=== PATIENT | female | born 1960 | race African-American/Black ===

== ENCOUNTER 2017-04-19 12:42 | Inpatient (IN) | payer SELFPAY ==
[~2017-04-19] VITALS: Ht 160 cm; Wt 77.1 kg
[~2017-04-19 12:42] MED LIST: AMLO2.5T45 PO; AZIT250T; B50; EPIN0.3P3; FAMO10TA13; RANI300T7 PO; TRIA454O
[2017-04-19] MEDS ORDERED: METHYLPREDNISOLONE SOD SUCC 125 MG/2 ML VIAL IV STA (14:21)
[2017-04-19] MEDS ORDERED: IPRATROPIUM BROMIDE (0.02%) 0.5MG/2.5ML NEB HHN STA (14:21)
[2017-04-19] MEDS ORDERED: MAGNESIUM 2 G PREMIX 50 ML IV STA (14:21)
[2017-04-19] MEDS ORDERED: ALBUTEROL (0.083%) 2.5MG/3ML NEB HHN STA (14:21)
[2017-04-19] MEDS ORDERED: ALBUTEROL (0.083%) 2.5MG/3ML NEB ONE (14:46)
[2017-04-19] MEDS ORDERED: IPRATROPIUM BROMIDE (0.02%) 0.5MG/2.5ML NEB ONE (14:46)
[2017-04-19] MEDS ORDERED: ALBUTEROL (0.5%) 2.5MG/0.5ML NEB HHN ONE (14:47)
[2017-04-19 15:04] LABS: BASOPHILS % 0.6 % (0.0-2.0); HEMATOCRIT. 43.7 % (36.0-48.0); HEMOGLOBIN. 14.9 g/dL (12.0-16.0); LYMPHOCYTES % 30.7 % (20.0-50.0); MEAN CORPUSCULAR HEMOGLOBIN 30.2 pg (28.0-32.0); MEAN CORPUSCULAR VOLUME 88.4 fL (81.0-99.0); MEAN PLATELET VOLUME 8.4 fl (7.4-10.4); MONOCYTES % 5.9 % (2.0-8.0); NEUTROPHILS % 59.8 % (40.0-76.0); PLATELET 158 x1000/uL (130-400); RED BLOOD CELL COUNT 4.95 mill/uL (4.2-5.4); RED CELL DISTRIBUTION WIDTH 13.3 % (11.6-14.6)
[2017-04-19 15:13] LABS: CARBON DIOXIDE 23 mEq/L (21-32); CHLORIDE 109 mEq/L (98-107)
[2017-04-19 15:19] LABS: TROPONIN I < 0.02 ng/mL (0.00-0.04)
[2017-04-19 15:25] LABS: PROTHROMBIN TIME 10.7 sec (9.4-11.6)
[2017-04-19] MEDS ORDERED: NITROGLYCERIN OINT 1GM/INCH UDPKT TD ONE (18:15)
[2017-04-19] MEDS ORDERED: ASPIRIN 325MG TABLET PO ONE (18:15)
[2017-04-19 21:56] VITALS: BP 120/71
[2017-04-19] MEDS: METHYLPREDNISOLONE SOD SUCC 40 MG/ML VIAL IV SCH (22:48)
[2017-04-19] MEDS: HYDROCODONE/ACETAMINOPHEN 5/325MG TABLET PO PRN (22:55)
[2017-04-20 00:22] VITALS: BP 113/65
[2017-04-20] MEDS: IPRATROPIUM/ALBUTEROL 0.5-3(2.5)MG/3ML NEB HHN SCH ×4 (01:16→21:17)
[2017-04-20] MEDS: LEVOFLOXACIN 500MG PREMIX 100 ML IV SCH ×2 (01:35→21:18)
[2017-04-20 04:40] VITALS: BP 113/75
[2017-04-20] MEDS: METHYLPREDNISOLONE SOD SUCC 40 MG/ML VIAL IV SCH ×3 (05:52→21:18)
[2017-04-20 06:37] LABS: BASOPHILS % 0.1 % (0.0-2.0); HEMATOCRIT. 40.9 % (36.0-48.0); HEMOGLOBIN. 13.9 g/dL (12.0-16.0); LYMPHOCYTES % 13.9 % (20.0-50.0); MEAN CORPUSCULAR HEMOGLOBIN 29.8 pg (28.0-32.0); MEAN CORPUSCULAR VOLUME 87.7 fL (81.0-99.0); MONOCYTES % 1.6 % (2.0-8.0); NEUTROPHILS % 84.4 % (40.0-76.0); PLATELET 181 x1000/uL (130-400); RED BLOOD CELL COUNT 4.66 mill/uL (4.2-5.4); RED CELL DISTRIBUTION WIDTH 13.4 % (11.6-14.6)
[2017-04-20 07:56] LABS: CARBON DIOXIDE 23 mEq/L (21-32); CHLORIDE 107 mEq/L (98-107); TROPONIN I < 0.02 ng/mL (0.00-0.04)
[2017-04-20 08:25] VITALS: BP 129/35
[2017-04-20] MEDS: HYDROCODONE/ACETAMINOPHEN 5/325MG TABLET PO PRN ×2 (14:40→21:17)
[2017-04-20] MEDS ORDERED: IPRATROPIUM/ALBUTEROL 0.5-3(2.5)MG/3ML NEB HHN PRN (15:00)
[2017-04-20 16:18] VITALS: BP 144/75
[2017-04-20] MEDS: DIPHENHYDRAMINE 50MG CAPSULE PO PRN (17:19)
[2017-04-20 20:10] VITALS: BP 134/81
[2017-04-20] MEDS: GUAIFENESIN 600MG ER TABLET PO SCH (21:17)
[2017-04-20] MEDS: BUDESONIDE 0.5MG/2ML NEB HHN SCH (21:18)
[2017-04-21 00:15] VITALS: BP 114/69
[2017-04-21] MEDS: IPRATROPIUM/ALBUTEROL 0.5-3(2.5)MG/3ML NEB HHN SCH ×4 (02:32→21:37)
[2017-04-21 04:44] VITALS: BP 132/78
[2017-04-21] MEDS: METHYLPREDNISOLONE SOD SUCC 40 MG/ML VIAL IV SCH ×2 (05:45→14:59)
[2017-04-21] MEDS: HYDROCODONE/ACETAMINOPHEN 5/325MG TABLET PO PRN ×2 (05:55→15:10)
[2017-04-21 08:10] VITALS: BP 108/60
[2017-04-21] MEDS: BUDESONIDE 0.5MG/2ML NEB HHN SCH ×2 (08:10→21:39)
[2017-04-21] MEDS: GUAIFENESIN 600MG ER TABLET PO SCH ×2 (08:24→21:47)
[2017-04-21 16:30] VITALS: BP 128/82
[2017-04-21] MEDS: LEVOFLOXACIN 500MG TABLET PO SCH (17:46)
[2017-04-21] MEDS: DIPHENHYDRAMINE 50MG CAPSULE PO PRN (17:50)
[2017-04-21 20:00] VITALS: BP 133/73
[2017-04-21] MEDS ORDERED: DOCUSATE SODIUM 100MG CAPSULE PO PRN (21:15)
[2017-04-21] MEDS ORDERED: GUAIFENESIN 200MG/10ML SUGAR FREE UDC PO PRN (21:15)
[2017-04-21] MEDS ORDERED: LACTULOSE 20G/30ML UDC PO NR (21:15)
[2017-04-21] MEDS ORDERED: CLONIDINE 0.1MG TABLET PO PRN (21:15)
[2017-04-21] MEDS ORDERED: ACETAMINOPHEN 650MG SUPP PR PRN (21:15)
[2017-04-21] MEDS ORDERED: NA PHOS,M-B/NA PHOS,DI-BA ENEMA 118ML PR PRN (21:15)
[2017-04-21] MEDS ORDERED: ONDANSETRON HCL 4MG/2ML VIAL IV PRN (21:15)
[2017-04-21] MEDS ORDERED: ENOXAPARIN 40MG/0.4ML SYR SUBCUT SCH (21:15)
[2017-04-21] MEDS ORDERED: BISACODYL 5MG TABLET PO NR (21:15)
[2017-04-21] MEDS ORDERED: ACETAMINOPHEN 650MG/20.3ML UDC GT PRN (21:15)
[2017-04-21] MEDS ORDERED: MAGNESIUM/ALUMINUM HYDROXIDE/SIMETHICONE 30ML UDC PO PRN (21:15)
[2017-04-21] MEDS ORDERED: ACETAMINOPHEN 325MG TABLET PO PRN (21:15)
[2017-04-21] MEDS ORDERED: PROMETHAZINE HCL 25MG TABLET PO PRN (21:15)
[2017-04-21] MEDS ORDERED: MAGNESIUM HYDROXIDE 400MG/5ML 30ML UDC PO PRN (21:15)
[2017-04-21] MEDS: MORPHINE SULFATE 2 MG/ML CPJ (NOT FOR IM USE) IV PRN (21:48)
[2017-04-21] MEDS: SODIUM CHLORIDE 0.9% INJ 3ML FLUSH IVF SCH (21:49)
[2017-04-22] VITALS: BP 113/75
[2017-04-22] MEDS: DIPHENHYDRAMINE 50MG CAPSULE PO PRN ×4 (00:08→20:33)
[2017-04-22 00:32] LABS: BG BASE EXCESS 2.7 mmol/L (-2.0-2.0); BG CARBOXYHEMOGLOBIN 0.2 % (0.5-1.5); BG DEOXYHEMOGLOBIN 10.6 % (0.0-5.0); BG FRACTION INSPIRED OXYGEN 21; BG HCO3 ACT 26.1 mmol/L (22.0-26.0); BG METHEMOGLOBIN 0.3 % (0.0-1.5); BG OXYGEN SATURATION 89.3 % (92.0-98.5); BG OXYHEMOGLOBIN 88.9 % (94.0-97.0); BG PCO2 36.6 mmHg (35.0-45.0); BG PH 7.471 (7.350-7.450); BG PO2 53.5 mmHg (75.0-100.0); BG SAMPLE SITE LEFT RADIAL; BG TOTAL HEMOGLOBIN 15.2 g/dL (12.0-18.0); BG VENT MODE ROOM AIR
[2017-04-22] MEDS: IPRATROPIUM/ALBUTEROL 0.5-3(2.5)MG/3ML NEB HHN SCH ×4 (02:12→20:14)
[2017-04-22] MEDS: ACETYLCYSTEINE 200MG/ML 20% VIAL 4ML INH SCH ×2 (02:12→07:36)
[2017-04-22 02:14] LABS: *AMPHETAMINES SCREEN URINE NEGATIVE (NEGATIVE); *BARBITURATES SCREEN URINE NEGATIVE (NEGATIVE); *BENZODIAZEPINES SCREEN URINE NEGATIVE (NEGATIVE); *COCAINE SCREEN URINE PRESUMTIVE POSITIVE (NEGATIVE); CANNABINOID URINE SCREEN NEGATIVE (NEGATIVE); METHADONE URINE SCREEN NEGATIVE (NEGATIVE); OPIATES URINE SCREEN PRESUMTIVE POSITIVE (NEGATIVE); PHENCYCLIDINE URINE SCREEN NEGATIVE (NEGATIVE)
[2017-04-22 04:00] VITALS: BP 113/69
[2017-04-22] MEDS: MORPHINE SULFATE 2 MG/ML CPJ (NOT FOR IM USE) IV PRN ×3 (05:49→20:35)
[2017-04-22 06:28] LABS: HEMATOCRIT. 41.2 % (36.0-48.0); MEAN CORPUSCULAR HEMOGLOBIN 30.1 pg (28.0-32.0); MEAN CORPUSCULAR VOLUME 88.7 fL (81.0-99.0); MEAN PLATELET VOLUME 9.1 fl (7.4-10.4); PLATELET 203 x1000/uL (130-400); RED BLOOD CELL COUNT 4.64 mill/uL (4.2-5.4); RED CELL DISTRIBUTION WIDTH 14.1 % (11.6-14.6)
[2017-04-22] MEDS: SODIUM CHLORIDE 0.9% INJ 3ML FLUSH IVF SCH ×3 (06:48→20:36)
[2017-04-22 07:32] LABS: CHLORIDE 106 mEq/L (98-107)
[2017-04-22] MEDS: BUDESONIDE 0.5MG/2ML NEB HHN SCH ×2 (07:36→20:14)
[2017-04-22 07:37] LABS: CARBON DIOXIDE 27 mEq/L (21-32); HDL CHOLESTEROL 80 mg/dL (40-59); LDL CHOLESTEROL 93 mg/dL (5-100)
[2017-04-22 08:16] VITALS: BP 137/80
[2017-04-22] MEDS: GUAIFENESIN 600MG ER TABLET PO SCH (09:01)
[2017-04-22] MEDS: METHYLPREDNISOLONE SOD SUCC 40 MG/ML VIAL IV SCH (09:01)
[2017-04-22] MEDS: ENOXAPARIN 30MG/0.3ML SYR SUBCUT SCH ×2 (09:02→20:34)
[2017-04-22 12:00] VITALS: BP 110/64
[2017-04-22] MEDS ORDERED: GUAIFENESIN/CODEINE 100-10MG/5ML UDC PO PRN (12:30)
[2017-04-22] MEDS ORDERED: MAGNESIUM CITRATE 300ML SOLUTION PO NR (12:45)
[2017-04-22] MEDS: LEVOFLOXACIN 500MG TABLET PO SCH (12:45)
[2017-04-22] MEDS ORDERED: ALBU18HF2 IH (14:53)
[2017-04-22] MEDS ORDERED: P50 PO (14:53)
[2017-04-22] MEDS ORDERED: FLUT1DIS3 IH (14:53)
[2017-04-22 16:00] VITALS: BP 117/77
[2017-04-22 20:00] VITALS: BP 115/81
[2017-04-22 21:04] LABS: PLATELET ESTIMATE NORMAL
[2017-04-23 00:20] VITALS: BP 126/83
[2017-04-23 04:00] VITALS: BP 117/77
[2017-04-23] MEDS: SODIUM CHLORIDE 0.9% INJ 3ML FLUSH IVF SCH ×2 (05:06→14:27)
[2017-04-23] MEDS: BUDESONIDE 0.5MG/2ML NEB HHN SCH ×2 (07:56→20:24)
[2017-04-23] MEDS: IPRATROPIUM/ALBUTEROL 0.5-3(2.5)MG/3ML NEB HHN SCH ×3 (07:57→20:24)
[2017-04-23 08:00] VITALS: BP 120/77
[2017-04-23] MEDS: DIPHENHYDRAMINE 50MG CAPSULE PO PRN (08:36)
[2017-04-23] MEDS: ENOXAPARIN 30MG/0.3ML SYR SUBCUT SCH ×2 (08:36→21:05)
[2017-04-23] MEDS: METHYLPREDNISOLONE SOD SUCC 40 MG/ML VIAL IV SCH (08:36)
[2017-04-23 09:26] LABS: BG BASE EXCESS 3.3 mmol/L (-2.0-2.0); BG DEOXYHEMOGLOBIN 11.8 % (0.0-5.0); BG FRACTION INSPIRED OXYGEN 21; BG HCO3 ACT 27.1 mmol/L (22.0-26.0); BG METHEMOGLOBIN 0.4 % (0.0-1.5); BG OXYHEMOGLOBIN 86.8 % (94.0-97.0); BG PCO2 38.3 mmHg (35.0-45.0); BG PH 7.467 (7.350-7.450); BG PO2 52.2 mmHg (75.0-100.0); BG SAMPLE SITE LEFT BRACHIAL; BG TOTAL HEMOGLOBIN 15.6 g/dL (12.0-18.0); BG VENT MODE ROOM AIR
[2017-04-23] MEDS: LEVOFLOXACIN 500MG TABLET PO SCH (11:30)
[2017-04-23 12:00] VITALS: BP 122/75
[2017-04-23 16:15] VITALS: BP 117/75
[2017-04-23] MEDS: MORPHINE SULFATE 2 MG/ML CPJ (NOT FOR IM USE) IV PRN (17:13)
[2017-04-23 20:40] VITALS: BP 127/72
[2017-04-24 00:39] VITALS: BP 139/81
[2017-04-24] MEDS: IPRATROPIUM/ALBUTEROL 0.5-3(2.5)MG/3ML NEB HHN SCH ×4 (01:47→19:42)
[2017-04-24] MEDS: DIPHENHYDRAMINE 50MG CAPSULE PO PRN ×2 (02:02→20:41)
[2017-04-24 04:00] VITALS: BP 123/77
[2017-04-24] MEDS: MORPHINE SULFATE 2 MG/ML CPJ (NOT FOR IM USE) IV PRN ×3 (06:55→22:58)
[2017-04-24 07:21] VITALS: BP 121/76
[2017-04-24] MEDS: BUDESONIDE 0.5MG/2ML NEB HHN SCH (08:46)
[2017-04-24] MEDS: ENOXAPARIN 30MG/0.3ML SYR SUBCUT SCH ×2 (08:56→20:42)
[2017-04-24] MEDS: PREDNISONE 20MG TABLET PO SCH (08:56)
[2017-04-24 09:20] LABS: BG BASE EXCESS 0.4 mmol/L (-2.0-2.0); BG CARBOXYHEMOGLOBIN 0.6 % (0.5-1.5); BG FRACTION INSPIRED OXYGEN 21; BG HCO3 ACT 23.6 mmol/L (22.0-26.0); BG METHEMOGLOBIN 0.3 % (0.0-1.5); BG OXYGEN SATURATION 91.9 % (92.0-98.5); BG OXYHEMOGLOBIN 91.1 % (94.0-97.0); BG PCO2 34.3 mmHg (35.0-45.0); BG PH 7.456 (7.350-7.450); BG PO2 60.1 mmHg (75.0-100.0); BG SAMPLE SITE LEFT RADIAL; BG TOTAL HEMOGLOBIN 15.8 g/dL (12.0-18.0); BG VENT MODE ROOM AIR
[2017-04-24] MEDS: LEVOFLOXACIN 500MG TABLET PO SCH (11:03)
[2017-04-24 12:00] VITALS: BP 120/84
[2017-04-24 16:00] VITALS: BP 119/82
[2017-04-24 20:49] VITALS: BP 103/66
[2017-04-24] MEDS: SODIUM CHLORIDE 0.9% INJ 3ML FLUSH IVF SCH ×2 (22:00→22:58)
[2017-04-25 00:27] VITALS: BP 122/59
[2017-04-25] MEDS: IPRATROPIUM/ALBUTEROL 0.5-3(2.5)MG/3ML NEB HHN SCH ×3 (02:00→13:12)
[2017-04-25 04:00] VITALS: BP 120/80
[2017-04-25] MEDS: PREDNISONE 20MG TABLET PO SCH (08:47)
[2017-04-25] MEDS: MORPHINE SULFATE 2 MG/ML CPJ (NOT FOR IM USE) IV PRN (08:48)
[2017-04-25] MEDS: ENOXAPARIN 30MG/0.3ML SYR SUBCUT SCH (09:28)
[2017-04-25 09:32] LABS: BG BASE EXCESS 1.6 mmol/L (-2.0-2.0); BG CARBOXYHEMOGLOBIN 0.1 % (0.5-1.5); BG DEOXYHEMOGLOBIN 7.5 % (0.0-5.0); BG FRACTION INSPIRED OXYGEN 21; BG HCO3 ACT 25.6 mmol/L (22.0-26.0); BG METHEMOGLOBIN 0.4 % (0.0-1.5); BG OXYGEN SATURATION 92.5 % (92.0-98.5); BG PCO2 38.3 mmHg (35.0-45.0); BG PH 7.443 (7.350-7.450); BG PO2 64.8 mmHg (75.0-100.0); BG SAMPLE SITE LEFT BRACHIAL; BG TOTAL HEMOGLOBIN 15.4 g/dL (12.0-18.0); BG VENT MODE ROOM AIR
[2017-04-25] MEDS: BUDESONIDE 0.5MG/2ML NEB HHN SCH (09:59)
[2017-04-25] MEDS: LEVOFLOXACIN 500MG TABLET PO SCH (11:39)
[2017-04-25 13:05] VITALS: BP 131/90
== END 2017-04-25 14:00 | disposition home or self-care (01) | DRG 140 ==
LOC: ER 12:50 → 6WST 16:24 → EDBEDREQ 16:26 → EDBEDREQTM 16:26 → ENRESERV 19:39 → 6WST 04-22 00:10
PROVIDERS: ADMIT Family Medicine; ATTEND Family Medicine
DX: J44.0 Chronic obstructive pulmonary disease with (acute) lower respiratory infection (principal); J96.00 Acute respiratory failure, unspecified whether with hypoxia or hypercapnia; I11.0 Hypertensive heart disease with heart failure; I50.9 Heart failure, unspecified; F14.90 Cocaine use, unspecified, uncomplicated; F17.210 Nicotine dependence, cigarettes, uncomplicated; J20.9 Acute bronchitis, unspecified; J44.1 Chronic obstructive pulmonary disease with (acute) exacerbation; J98.11 Atelectasis; L40.9 Psoriasis, unspecified; Z88.0 Allergy status to penicillin; Z71.6 Tobacco abuse counseling; Z88.8 Allergy status to other drugs, medicaments and biological substances; Z82.49 Family history of ischemic heart disease and other diseases of the circulatory system
CPT/HCPCS: 36415; 36600; 71010; 80048; 80053; 80061; 80305; 82375; 82805; 83605; 83690; 83880; 84484; 85025; 85379; 85610; 87040; 87804; 93005; 93970; 94640; 94664; 96365; 96366; 96375; 97116; 97162; 99285; C1893; J1650; J1956; J2270; J2920; J2930; J3475; J7050; J7512; J7608; J7611; J7620; J7626; Q0163; Q0169

== ENCOUNTER 2018-10-13 12:27 | Emergency (ER) | payer MEDICAID ==
[~2018-10-13] VITALS: Ht 160 cm; Wt 81.0 kg
[~2018-10-13 12:27] MED LIST changes: +ALBU18HF2 IH; -AMLO2.5T45 PO; -AZIT250T; -B50; -EPIN0.3P3; -FAMO10TA13; +FLUT1DIS3 IH; +P50 PO; -RANI300T7 PO; -TRIA454O
[2018-10-13 15:00] VITALS: BP 129/87
== END 2018-10-13 15:28 | disposition home or self-care (01) ==
LOC: ER 12:27
DX: H61.22 Impacted cerumen, left ear (principal); H60.92 Unspecified otitis externa, left ear; J44.9 Chronic obstructive pulmonary disease, unspecified; I11.0 Hypertensive heart disease with heart failure; I50.9 Heart failure, unspecified; F17.200 Nicotine dependence, unspecified, uncomplicated; M32.9 Systemic lupus erythematosus, unspecified; Z98.890 Other specified postprocedural states; Z88.0 Allergy status to penicillin; Z88.1 Allergy status to other antibiotic agents; Z79.899 Other long term (current) drug therapy
CPT/HCPCS: 69209; 70486; 99284

== ENCOUNTER 2018-12-13 15:56 | Inpatient (IN) | payer MEDICAID ==
[~2018-12-13] VITALS: Ht 160 cm; Wt 79.8 kg
[2018-12-13 10:00] VITALS: BP 103/68
[2018-12-13] MEDS ORDERED: LEVOFLOXACIN 750MG PREMIX 150 ML IV ONE (16:45)
[2018-12-13] MEDS ORDERED: METHYLPREDNISOLONE SOD SUCC 125 MG/2 ML VIAL IV STA (16:45)
[2018-12-13] MEDS ORDERED: ONDANSETRON HCL 4MG/2ML INJ IV STA (16:45)
[2018-12-13] MEDS ORDERED: MORPHINE SULFATE 4 MG/ML CPJ (NOT FOR IM USE) IV STA (16:45)
[2018-12-13] MEDS ORDERED: SODIUM CHLORIDE 0.9% 1,000 ML IV ONE (16:45)
[2018-12-13] MEDS ORDERED: DIPHENHYDRAMINE 50MG/ML VIAL IV ONE ×2 (16:45→19:45)
[2018-12-13] MEDS ORDERED: IPRATROPIUM/ALBUTEROL 0.5-3(2.5)MG/3ML NEB HHN ONE (16:45)
[2018-12-13 17:20] LABS: EOSINOPHILS % 5.7 % (0.0-5.0); HEMATOCRIT. 41.5 % (36.0-48.0); HEMOGLOBIN. 13.9 g/dL (12.0-16.0); LYMPHOCYTES % 34.7 % (20.0-50.0); MEAN CORPUSCULAR VOLUME 89.8 fL (81.0-99.0); MEAN PLATELET VOLUME 8.6 fl (7.4-10.4); MONOCYTES % 6.2 % (2.0-8.0); NEUTROPHILS % 52.4 % (40.0-76.0); PLATELET 202 x1000/uL (130-400); RED BLOOD CELL COUNT 4.62 mill/uL (4.2-5.4); RED CELL DISTRIBUTION WIDTH 13.7 % (11.6-14.6)
[2018-12-13 17:27] LABS: CHLORIDE 110 mEq/L (98-107); PROTHROMBIN TIME 10.2 sec (9.6-11.0)
[2018-12-13 17:30] LABS: ETHANOL BLOOD < 10 mg/dL
[2018-12-13 17:39] LABS: BG CARBOXYHEMOGLOBIN 0.5 % (0.5-1.5); BG DEOXYHEMOGLOBIN 8.1 % (0.0-5.0); BG FRACTION INSPIRED OXYGEN 21; BG HCO3 ACT 21.6 mmol/L (22.0-26.0); BG METHEMOGLOBIN 0.1 % (0.0-1.5); BG OXYGEN SATURATION 91.9 % (92.0-98.5); BG OXYHEMOGLOBIN 91.3 % (94.0-97.0); BG PCO2 33.7 mmHg (35.0-45.0); BG PH 7.425 (7.350-7.450); BG PO2 61.5 mmHg (75.0-100.0); BG SAMPLE SITE RIGHT RADIAL; BG TOTAL HEMOGLOBIN 13.6 g/dL (12.0-18.0); BG VENT MODE ROOM AIR
[2018-12-13] MEDS ORDERED: ONDANSETRON HCL 4MG/2ML INJ IV ONE (19:45)
[2018-12-13] MEDS ORDERED: MORPHINE SULFATE 4 MG/ML CPJ (NOT FOR IM USE) IV ONE (19:45)
[2018-12-13 22:00] VITALS: BP 103/68
[2018-12-13] MEDS ORDERED: ACETAMINOPHEN 325MG TABLET PO PRN (22:15)
[2018-12-13] MEDS ORDERED: CLONIDINE 0.2MG TABLET PO PRN (22:15)
[2018-12-13] MEDS ORDERED: LEVOFLOXACIN 500MG PREMIX 100 ML IV SCH (22:15)
[2018-12-13] MEDS ORDERED: ONDANSETRON HCL 4MG/2ML INJ IV PRN (22:15)
[2018-12-13] MEDS ORDERED: IPRATROPIUM/ALBUTEROL 0.5-3(2.5)MG/3ML NEB HHN PRN (22:15)
[2018-12-13] MEDS: METHYLPREDNISOLONE SOD SUCC 40 MG/ML VIAL IV SCH (23:34)
[2018-12-13] MEDS: HYDROCODONE/ACETAMINOPHEN 5/325MG TABLET PO PRN (23:34)
[2018-12-14] VITALS: BP 115/71
[2018-12-14] MEDS: DIPHENHYDRAMINE 50MG/ML VIAL IV PRN ×3 (03:45→20:54)
[2018-12-14] MEDS: HYDROCODONE/ACETAMINOPHEN 5/325MG TABLET PO PRN ×3 (03:55→20:55)
[2018-12-14 04:00] VITALS: BP 123/69
[2018-12-14] MEDS: OMEPRAZOLE 20MG CAPSULE EXTENDED RELEASE PO SCH (05:21)
[2018-12-14 06:33] LABS: CHLORIDE 112 mEq/L (98-107)
[2018-12-14 06:41] LABS: BASOPHILS % 0.3 % (0.0-2.0); EOSINOPHILS % 0.1 % (0.0-5.0); HEMATOCRIT. 36.6 % (36.0-48.0); HEMOGLOBIN. 12.4 g/dL (12.0-16.0); LYMPHOCYTES % 15.4 % (20.0-50.0); MEAN CORPUSCULAR HEMOGLOBIN 30.4 pg (28.0-32.0); MEAN CORPUSCULAR VOLUME 89.4 fL (81.0-99.0); MONOCYTES % 1.9 % (2.0-8.0); NEUTROPHILS % 82.3 % (40.0-76.0); PLATELET 188 x1000/uL (130-400); RED CELL DISTRIBUTION WIDTH 13.6 % (11.6-14.6)
[2018-12-14 08:00] VITALS: BP 100/50
[2018-12-14] MEDS: METHYLPREDNISOLONE SOD SUCC 40 MG/ML VIAL IV SCH ×3 (08:34→23:42)
[2018-12-14] MEDS: ENOXAPARIN 40MG/0.4ML SYR SUBCUT SCH (08:34)
[2018-12-14 12:00] VITALS: BP 126/69
[2018-12-14 16:00] VITALS: BP 130/73
[2018-12-14] MEDS ORDERED: LEVOFLOXACIN 500MG PREMIX 100 ML IV SCH (18:00)
[2018-12-14 20:00] VITALS: BP 129/72
[2018-12-15] VITALS: BP 121/68
[2018-12-15 04:00] VITALS: BP 137/78
[2018-12-15] MEDS: OMEPRAZOLE 20MG CAPSULE EXTENDED RELEASE PO SCH (05:53)
[2018-12-15 08:00] VITALS: BP 149/80
[2018-12-15] MEDS: ENOXAPARIN 40MG/0.4ML SYR SUBCUT SCH (08:14)
[2018-12-15] MEDS: METHYLPREDNISOLONE SOD SUCC 40 MG/ML VIAL IV SCH (08:14)
[2018-12-15] MEDS: DIPHENHYDRAMINE 50MG/ML VIAL IV PRN (08:15)
[2018-12-15] MEDS: HYDROCODONE/ACETAMINOPHEN 5/325MG TABLET PO PRN (08:20)
[2018-12-15] MEDS ORDERED: LACTULOSE 20G/30ML UDC PO NR (11:15)
[2018-12-15 11:50] VITALS: BP 139/92
[2018-12-15 12:00] VITALS: BP 139/92
== END 2018-12-15 13:05 | disposition home or self-care (01) | DRG 133 ==
LOC: ER 15:56 → 5WST 20:02 → EDBEDREQTM 20:12 → EDBEDREQ 20:12 → ENRESERV 21:02
PROVIDERS: ADMIT Internal Medicine; ATTEND Internal Medicine
DX: J96.00 Acute respiratory failure, unspecified whether with hypoxia or hypercapnia (principal); J44.9 Chronic obstructive pulmonary disease, unspecified; I11.0 Hypertensive heart disease with heart failure; I50.9 Heart failure, unspecified; F17.210 Nicotine dependence, cigarettes, uncomplicated; Z82.49 Family history of ischemic heart disease and other diseases of the circulatory system; Z88.0 Allergy status to penicillin; Z88.1 Allergy status to other antibiotic agents; Z79.51 Long term (current) use of inhaled steroids; Z79.899 Other long term (current) drug therapy
CPT/HCPCS: 36415; 36600; 71045; 80048; 80320; 82375; 82805; 83605; 83880; 84484; 93005; 94640; 96374; 96375; 99285; 99406; J1200; J1650; J1956; J2270; J2405; J2920; J2930; J7030; J7050; J7620; G0480

== ENCOUNTER 2019-10-29 10:01 | Inpatient (IN) | payer MEDICAID ==
[~2019-10-29] VITALS: Ht 160 cm; Wt 58.1 kg
[2019-10-29] MEDS ORDERED: FLUORESCEIN SODIUM 1MG/STRIP BOTHEYE ONE (10:30)
[2019-10-29] MEDS ORDERED: VANCOMYCIN 1 G PREMIX 200 ML IV SCH (10:30)
[2019-10-29] MEDS ORDERED: SODIUM CHLORIDE 0.9% 1000ML BAG (SEPSIS BOLUS) IV ONE (10:30)
[2019-10-29] MEDS ORDERED: TETRACAINE 0.5% OPHTH DROPS 4ML BOTHEYE ONE (10:30)
[2019-10-29] MEDS ORDERED: ONDANSETRON HCL 4MG/2ML INJ IV STA (10:37)
[2019-10-29] MEDS ORDERED: MORPHINE SULFATE 4 MG/ML CPJ (NOT FOR IM USE) IV STA (10:37)
[2019-10-29] MEDS ORDERED: METHYLPREDNISOLONE SOD SUCC 125 MG/2 ML VIAL IV ONE (10:45)
[2019-10-29] MEDS ORDERED: FAMOTIDINE 20MG/2ML VIAL IV ONE (10:45)
[2019-10-29] MEDS ORDERED: DIPHENHYDRAMINE 50MG/ML VIAL IV ONE (10:45)
[2019-10-29] MEDS ORDERED: LEVOFLOXACIN 750MG PREMIX 150 ML IV ONE (11:00)
[2019-10-29 12:31] LABS: BASOPHILS % 0.6 % (0.0-2.0); EOSINOPHILS % 8.4 % (0.0-5.0); HEMATOCRIT. 42.1 % (36.0-48.0); HEMOGLOBIN. 14.7 g/dL (12.0-16.0); LYMPHOCYTES % 27.2 % (20.0-50.0); MEAN CORPUSCULAR HEMOGLOBIN 31.6 pg (28.0-32.0); MEAN CORPUSCULAR VOLUME 90.5 fL (81.0-99.0); MEAN PLATELET VOLUME 8.6 fl (7.4-10.4); MONOCYTES % 7.7 % (2.0-8.0); NEUTROPHILS % 56.1 % (40.0-76.0); PLATELET 183 x1000/uL (130-400); RED BLOOD CELL COUNT 4.65 mill/uL (4.2-5.4); RED CELL DISTRIBUTION WIDTH 13.9 % (11.6-14.6)
[2019-10-29 12:32] LABS: CHLORIDE 110 mEq/L (98-107)
[2019-10-29] MEDS ORDERED: SULFACETAMIDE SODIUM 10% OPHTH DROPS 15ML BOTHEYE SCH (13:00)
[2019-10-29] MEDS ORDERED: IOHEXOL-300 100 ML BOTTLE ONE (15:13)
[2019-10-29 18:10] VITALS: BP 138/80
[2019-10-29] MEDS ORDERED: CLONIDINE 0.1MG TABLET PO PRN (19:15)
[2019-10-29] MEDS ORDERED: ONDANSETRON HCL 4MG/2ML INJ IV PRN (19:15)
[2019-10-29] MEDS ORDERED: IPRATROPIUM/ALBUTEROL 0.5-3(2.5)MG/3ML NEB NEB PRN (19:15)
[2019-10-29] MEDS ORDERED: MAGNESIUM/ALUMINUM HYDROXIDE/SIMETHICONE 30ML UDC PO PRN (19:15)
[2019-10-29] MEDS ORDERED: ACETAMINOPHEN 325MG TABLET PO PRN (19:15)
[2019-10-29] MEDS ORDERED: DOCUSATE SODIUM 100MG CAPSULE PO PRN (19:15)
[2019-10-29] MEDS: ENOXAPARIN 40MG/0.4ML SYR SUBCUT SCH (20:12)
[2019-10-29 20:37] VITALS: BP 127/72
[2019-10-29] MEDS: VANCOMYCIN 500 MG PREMIX 100 ML IV SCH (22:14)
[2019-10-29 22:48] LABS: CLARITY URINE CLOUDY (CLEAR); COLOR URINE YELLOW (YELLOW); KETONES URINE NEGATIVE (NEGATIVE); LEUKOCYTE ESTERASE URINE 1+ (NEGATIVE); NITRITE URINE NEGATIVE (NEGATIVE); OCCULT BLOOD URINE TRACE (NEGATIVE); PROTEIN URINE NEGATIVE (NEGATIVE); SPECIFIC GRAVITY URINE 1.059 (1.005-1.030); UROBILINOGEN URINE 0.2 E.U./dL (0.2-1.0)
[2019-10-29 23:22] LABS: *AMPHETAMINES SCREEN URINE NEGATIVE (NEGATIVE); *BARBITURATES SCREEN URINE NEGATIVE (NEGATIVE); *COCAINE SCREEN URINE PRESUMTIVE POSITIVE (NEGATIVE)
[2019-10-29 23:23] LABS: CANNABINOID URINE SCREEN PRESUMTIVE POSITIVE (NEGATIVE); METHADONE URINE SCREEN NEGATIVE (NEGATIVE); OPIATES URINE SCREEN PRESUMTIVE POSITIVE (NEGATIVE); PHENCYCLIDINE URINE SCREEN NEGATIVE (NEGATIVE)
[2019-10-29 23:29] LABS: *BENZODIAZEPINES SCREEN URINE NEGATIVE (NEGATIVE)
[2019-10-30] VITALS: BP 104/62
[2019-10-30 00:40] LABS: CHLORIDE 112 mEq/L (98-107)
[2019-10-30 00:47] LABS: CREATINE KINASE 44 IU/L (26-192)
[2019-10-30 00:48] LABS: CREATINE KINASE MB FRACTION < 1.0 ng/mL (0.5-3.6)
[2019-10-30 04:00] VITALS: BP 109/76
[2019-10-30] MEDS: HYDROCODONE/ACETAMINOPHEN 5/325MG TABLET PO PRN (05:00)
[2019-10-30] MEDS: VANCOMYCIN 500 MG PREMIX 100 ML IV SCH ×3 (05:54→21:51)
[2019-10-30 06:07] LABS: BASOPHILS % 0.5 % (0.0-2.0); EOSINOPHILS % 0.2 % (0.0-5.0); HEMATOCRIT. 39.3 % (36.0-48.0); HEMOGLOBIN. 13.6 g/dL (12.0-16.0); LYMPHOCYTES % 25.7 % (20.0-50.0); MEAN CORPUSCULAR VOLUME 89.5 fL (81.0-99.0); MEAN PLATELET VOLUME 9.2 fl (7.4-10.4); MONOCYTES % 5.9 % (2.0-8.0); NEUTROPHILS % 67.7 % (40.0-76.0); PLATELET 182 x1000/uL (130-400); RED CELL DISTRIBUTION WIDTH 13.7 % (11.6-14.6)
[2019-10-30 06:19] LABS: CREATINE KINASE 39 IU/L (26-192); HDL CHOLESTEROL 73 mg/dL (40-59); LDL CHOLESTEROL 78 mg/dL (5-100)
[2019-10-30 06:20] LABS: CREATINE KINASE MB FRACTION < 1.0 ng/mL (0.5-3.6)
[2019-10-30 08:00] VITALS: BP 132/79
[2019-10-30 12:00] VITALS: BP 128/84
[2019-10-30 16:00] VITALS: BP 135/75
[2019-10-30 20:00] VITALS: BP 132/73
[2019-10-30] MEDS: ENOXAPARIN 40MG/0.4ML SYR SUBCUT SCH (20:03)
[2019-10-31] VITALS: BP 125/78
[2019-10-31 04:00] VITALS: BP 127/66
[2019-10-31] MEDS: VANCOMYCIN 500 MG PREMIX 100 ML IV SCH (06:02)
[2019-10-31 07:17] LABS: BASOPHILS % 0.7 % (0.0-2.0); EOSINOPHILS % 4.5 % (0.0-5.0); HEMATOCRIT. 39.6 % (36.0-48.0); HEMOGLOBIN. 13.7 g/dL (12.0-16.0); LYMPHOCYTES % 48.9 % (20.0-50.0); MEAN CORPUSCULAR HEMOGLOBIN 30.8 pg (28.0-32.0); MEAN CORPUSCULAR VOLUME 89.1 fL (81.0-99.0); MEAN PLATELET VOLUME 8.6 fl (7.4-10.4); MONOCYTES % 5.3 % (2.0-8.0); NEUTROPHILS % 40.6 % (40.0-76.0); PLATELET 193 x1000/uL (130-400); RED BLOOD CELL COUNT 4.44 mill/uL (4.2-5.4); RED CELL DISTRIBUTION WIDTH 13.8 % (11.6-14.6)
[2019-10-31 07:47] LABS: CHLORIDE 110 mEq/L (98-107)
[2019-10-31 07:54] LABS: VANCOMYCIN TROUGH 31.7 ug/mL (5.0-10.0)
[2019-10-31 08:00] VITALS: BP_SYST 137; BP_SYST 150; BP_DIAS 89; BP_DIAS 90
[2019-10-31] MEDS: HYDROCODONE/ACETAMINOPHEN 5/325MG TABLET PO PRN ×2 (11:30→19:48)
[2019-10-31] MEDS: DIPHENHYDRAMINE 25MG CAPSULE PO PRN ×2 (11:30→19:47)
[2019-10-31 12:00] VITALS: BP 127/78
[2019-10-31 16:00] VITALS: BP 133/82
[2019-10-31] MEDS: VANCOMYCIN 1 G PREMIX 200 ML IV SCH (18:13)
[2019-10-31] MEDS: ENOXAPARIN 40MG/0.4ML SYR SUBCUT SCH (19:47)
[2019-10-31 19:58] VITALS: BP 143/93
[2019-11-01 00:05] VITALS: BP 126/78
[2019-11-01 04:13] VITALS: BP 131/69
[2019-11-01] MEDS: VANCOMYCIN 1 G PREMIX 200 ML IV SCH (05:27)
[2019-11-01 07:03] LABS: BASOPHILS % 0.7 % (0.0-2.0); EOSINOPHILS % 5.9 % (0.0-5.0); HEMATOCRIT. 41.5 % (36.0-48.0); HEMOGLOBIN. 14.2 g/dL (12.0-16.0); LYMPHOCYTES % 38.2 % (20.0-50.0); MEAN CORPUSCULAR HEMOGLOBIN 30.7 pg (28.0-32.0); MEAN CORPUSCULAR VOLUME 89.4 fL (81.0-99.0); MEAN PLATELET VOLUME 8.8 fl (7.4-10.4); MONOCYTES % 9.8 % (2.0-8.0); NEUTROPHILS % 45.4 % (40.0-76.0); PLATELET 203 x1000/uL (130-400); RED BLOOD CELL COUNT 4.64 mill/uL (4.2-5.4); RED CELL DISTRIBUTION WIDTH 13.7 % (11.6-14.6)
[2019-11-01 07:07] LABS: CHLORIDE 107 mEq/L (98-107)
[2019-11-01 08:00] VITALS: BP 123/85
[2019-11-01] MEDS: HYDROCODONE/ACETAMINOPHEN 5/325MG TABLET PO PRN (09:19)
[2019-11-01] MEDS: DIPHENHYDRAMINE 25MG CAPSULE PO PRN (09:26)
[2019-11-01 12:00] VITALS: BP 118/72
[2019-11-01] MEDS ORDERED: LEVO750T46 MT (12:24)
[2019-11-01] MEDS ORDERED: SULF1TAB48 PO (12:24)
[2019-11-01 14:18] VITALS: BP 126/75
== END 2019-11-01 16:20 | disposition home or self-care (01) | DRG 346 ==
LOC: ER 10:21 → MICUSO 16:52 → EDBEDREQTM 16:55 → EDBEDREQ 16:55 → 6WST 18:14
PROVIDERS: ADMIT Internal Medicine; ATTEND Internal Medicine
DX: M32.9 Systemic lupus erythematosus, unspecified (principal); I11.0 Hypertensive heart disease with heart failure; I50.9 Heart failure, unspecified; L03.213 Periorbital cellulitis; J44.9 Chronic obstructive pulmonary disease, unspecified; Z88.0 Allergy status to penicillin; Z88.1 Allergy status to other antibiotic agents; Z88.8 Allergy status to other drugs, medicaments and biological substances; Z79.899 Other long term (current) drug therapy
CPT/HCPCS: 36415; 70487; 71045; 80048; 80053; 80061; 80202; 80305; 81003; 82550; 82553; 83735; 83880; 84443; 84484; 85025; 86160; 93005; 96374; 99285; J1200; J1650; J1956; J2270; J2405; J2930; J3370; J3490; J7030; Q0163; Q9967

== ENCOUNTER 2019-12-12 08:32 | Inpatient (IN) | payer MEDICAID, OTHER ==
[~2019-12-12] VITALS: Ht 167.6 cm; Wt 76.7 kg
[~2019-12-12 08:32] MED LIST changes: +LEVO750T46 MT; +SULF1TAB48 PO
[2019-12-12] MEDS ORDERED: MORPHINE SULFATE 4 MG/ML CPJ (NOT FOR IM USE) IV ONE (08:45)
[2019-12-12 09:42] LABS: HEMATOCRIT. 48.2 % (36.0-48.0); HEMOGLOBIN. 16.5 g/dL (12.0-16.0); MEAN CORPUSCULAR HEMOGLOBIN 31.8 pg (28.0-32.0); MEAN CORPUSCULAR VOLUME 92.8 fL (81.0-99.0); RED BLOOD CELL COUNT 5.19 mill/uL (4.2-5.4); RED CELL DISTRIBUTION WIDTH 14.5 % (11.6-14.6)
[2019-12-12 09:44] LABS: CHLORIDE 111 mEq/L (98-107)
[2019-12-12] MEDS ORDERED: IPRATROPIUM/ALBUTEROL 0.5-3(2.5)MG/3ML NEB NEB PRN (13:15)
[2019-12-12] MEDS ORDERED: ONDANSETRON HCL 4MG/2ML INJ IV PRN (13:15)
[2019-12-12] MEDS ORDERED: NA PHOS,M-B/NA PHOS,DI-BA ENEMA 118ML PR PRN (13:15)
[2019-12-12] MEDS ORDERED: ACETAMINOPHEN 325MG TABLET PO PRN (13:15)
[2019-12-12] MEDS ORDERED: GUAIFENESIN 200MG/10ML SUGAR FREE UDC PO PRN (13:15)
[2019-12-12] MEDS ORDERED: LORAZEPAM 2MG/ML CPJ IV PRN (13:15)
[2019-12-12] MEDS ORDERED: MAGNESIUM/ALUMINUM HYDROXIDE/SIMETHICONE 30ML UDC PO PRN (13:15)
[2019-12-12] MEDS ORDERED: DOCUSATE SODIUM 100MG CAPSULE PO PRN (13:15)
[2019-12-12] MEDS ORDERED: CLONIDINE 0.1MG TABLET PO PRN (13:15)
[2019-12-12] MEDS: SODIUM CHLORIDE 0.45% 1,000 ML IV SCH (15:45)
[2019-12-12] MEDS: ASPIRIN 81MG EC TABLET PO SCH (15:45)
[2019-12-12] MEDS: METHYLPREDNISOLONE SOD SUCC 125 MG/2 ML VIAL IV SCH ×2 (15:45→17:38)
[2019-12-12 16:53] LABS: HEMATOCRIT. 48.6 % (36.0-48.0); HEMOGLOBIN. 16.7 g/dL (12.0-16.0); MEAN CORPUSCULAR HEMOGLOBIN 31.7 pg (28.0-32.0); MEAN CORPUSCULAR VOLUME 92.4 fL (81.0-99.0); MEAN PLATELET VOLUME 8.1 fl (7.4-10.4); PLATELET 285 x1000/uL (130-400); RED BLOOD CELL COUNT 5.26 mill/uL (4.2-5.4); RED CELL DISTRIBUTION WIDTH 14.6 % (11.6-14.6)
[2019-12-12 16:58] LABS: CHLORIDE 113 mEq/L (98-107)
[2019-12-12 17:20] LABS: PLATELET ESTIMATE NORMAL
[2019-12-12] MEDS: ENOXAPARIN 40MG/0.4ML SYR SUBCUT SCH (17:22)
[2019-12-12 21:15] VITALS: BP 138/80
[2019-12-12] MEDS: DIPHENHYDRAMINE 50MG/ML VIAL IV PRN (21:37)
[2019-12-12] MEDS: MORPHINE SULFATE 2 MG/ML CPJ (NOT FOR IM USE) IV PRN (21:37)
[2019-12-13] VITALS: BP 104/50
[2019-12-13] MEDS: METHYLPREDNISOLONE SOD SUCC 125 MG/2 ML VIAL IV SCH ×5 (00:32→23:56)
[2019-12-13 04:00] VITALS: BP 121/57
[2019-12-13] MEDS: SODIUM CHLORIDE 0.45% 1,000 ML IV SCH ×2 (06:01→20:04)
[2019-12-13 08:00] VITALS: BP 116/62
[2019-12-13 08:09] LABS: BASOPHILS % 0.8 % (0.0-2.0); EOSINOPHILS % 0.2 % (0.0-5.0); HEMATOCRIT. 45.2 % (36.0-48.0); HEMOGLOBIN. 15.4 g/dL (12.0-16.0); LYMPHOCYTES % 27.7 % (20.0-50.0); MEAN CORPUSCULAR HEMOGLOBIN 31.1 pg (28.0-32.0); MEAN CORPUSCULAR VOLUME 91.5 fL (81.0-99.0); MEAN PLATELET VOLUME 7.8 fl (7.4-10.4); MONOCYTES % 2.9 % (2.0-8.0); NEUTROPHILS % 68.4 % (40.0-76.0); PLATELET 282 x1000/uL (130-400); RED BLOOD CELL COUNT 4.94 mill/uL (4.2-5.4); RED CELL DISTRIBUTION WIDTH 14.5 % (11.6-14.6)
[2019-12-13 08:44] LABS: CHLORIDE 115 mEq/L (98-107)
[2019-12-13 08:51] LABS: LDL CHOLESTEROL 74 mg/dL (5-100)
[2019-12-13 08:53] LABS: HDL CHOLESTEROL 60 mg/dL (40-59)
[2019-12-13 08:54] LABS: T4 FREE 0.88 ng/dL (0.76-1.46)
[2019-12-13] MEDS: ASPIRIN 81MG EC TABLET PO SCH (08:55)
[2019-12-13] MEDS: ENOXAPARIN 40MG/0.4ML SYR SUBCUT SCH (08:55)
[2019-12-13] MEDS: DIPHENHYDRAMINE 50MG/ML VIAL IV PRN ×3 (09:13→20:25)
[2019-12-13] MEDS: HYDROCODONE/ACETAMINOPHEN 10/325MG TABLET PO PRN (09:14)
[2019-12-13 12:00] VITALS: BP 107/54
[2019-12-13] MEDS: TRIAMCINOLONE ACETONIDE 0.1% CREAM 15GM TOP SCH ×2 (12:05→20:23)
[2019-12-13 16:00] VITALS: BP 121/57
[2019-12-13 20:00] VITALS: BP 107/66
[2019-12-13] MEDS: MORPHINE SULFATE 2 MG/ML CPJ (NOT FOR IM USE) IV PRN (20:25)
[2019-12-14] VITALS (7 sets, daily range): BP systolic 105–131; BP diastolic 60–85
[2019-12-14] MEDS: METHYLPREDNISOLONE SOD SUCC 125 MG/2 ML VIAL IV SCH ×3 (06:28→17:44)
[2019-12-14] MEDS: DIPHENHYDRAMINE 50MG/ML VIAL IV PRN ×2 (06:35→17:50)
[2019-12-14] MEDS: HYDROCODONE/ACETAMINOPHEN 10/325MG TABLET PO PRN (06:36)
[2019-12-14 06:55] LABS: CHLORIDE 111 mEq/L (98-107)
[2019-12-14 07:05] LABS: BASOPHILS % 0.3 % (0.0-2.0); HEMATOCRIT. 38.5 % (36.0-48.0); LYMPHOCYTES % 13.8 % (20.0-50.0); MEAN CORPUSCULAR VOLUME 91.9 fL (81.0-99.0); MEAN PLATELET VOLUME 8.1 fl (7.4-10.4); MONOCYTES % 3.3 % (2.0-8.0); NEUTROPHILS % 82.6 % (40.0-76.0); PLATELET 264 x1000/uL (130-400); RED BLOOD CELL COUNT 4.19 mill/uL (4.2-5.4); RED CELL DISTRIBUTION WIDTH 14.4 % (11.6-14.6)
[2019-12-14] MEDS: ENOXAPARIN 40MG/0.4ML SYR SUBCUT SCH (08:27)
[2019-12-14] MEDS: ASPIRIN 81MG EC TABLET PO SCH (08:27)
[2019-12-14] MEDS: TRIAMCINOLONE ACETONIDE 0.1% CREAM 15GM TOP SCH (11:23)
[2019-12-14] MEDS: SODIUM CHLORIDE 0.45% 1,000 ML IV SCH (15:28)
[2019-12-14] MEDS: MORPHINE SULFATE 2 MG/ML CPJ (NOT FOR IM USE) IV PRN (17:51)
== END 2019-12-14 18:50 | disposition home or self-care (01) | DRG 346 ==
LOC: ER 08:32 → 8WST 12:25 → EDBEDREQ 14:55 → ENRESERV 20:11 → 8WST 21:19
PROVIDERS: ADMIT Internal Medicine; ATTEND Internal Medicine
DX: M32.9 Systemic lupus erythematosus, unspecified (principal); E86.0 Dehydration; I10 Essential (primary) hypertension; E46 Unspecified protein-calorie malnutrition; L30.9 Dermatitis, unspecified; E11.9 Type 2 diabetes mellitus without complications; I11.0 Hypertensive heart disease with heart failure; G89.4 Chronic pain syndrome; I50.9 Heart failure, unspecified; J44.9 Chronic obstructive pulmonary disease, unspecified; N39.0 Urinary tract infection, site not specified; Z88.0 Allergy status to penicillin; Z91.09 Other allergy status, other than to drugs and biological substances; Z79.899 Other long term (current) drug therapy; E87.8 Other disorders of electrolyte and fluid balance, not elsewhere classified; E83.51 Hypocalcemia
CPT/HCPCS: 36415; 71045; 80048; 80053; 80061; 83880; 84439; 84443; 84484; 85025; 93005; 99285; J1200; J1650; J2270; J2930

== ENCOUNTER 2020-01-13 22:50 | Inpatient (IN) | payer MEDICAID, OTHER ==
[~2020-01-13] VITALS: Ht 167.6 cm; Wt 73.2 kg
[~2020-01-13 22:50] MED LIST changes: -LEVO750T46 MT; -P50 PO; -SULF1TAB48 PO
[2020-01-13] MEDS ORDERED: MAGNESIUM 2 G PREMIX 50 ML IV ONE (23:30)
[2020-01-13] MEDS ORDERED: ALBUTEROL (0.083%) 2.5MG/3ML NEB HHN STA (23:30)
[2020-01-13] MEDS ORDERED: METHYLPREDNISOLONE SOD SUCC 125 MG/2 ML VIAL IV STA (23:30)
[2020-01-13] MEDS ORDERED: IPRATROPIUM BROMIDE (0.02%) 0.5MG/2.5ML NEB HHN STA (23:30)
[2020-01-13 23:51] LABS: BASOPHILS % 0.7 % (0.0-2.0); EOSINOPHILS % 1.4 % (0.0-5.0); HEMATOCRIT. 36.4 % (36.0-48.0); HEMOGLOBIN. 12.2 g/dL (12.0-16.0); LYMPHOCYTES % 10.2 % (20.0-50.0); MEAN CORPUSCULAR HEMOGLOBIN 31.1 pg (28.0-32.0); MEAN CORPUSCULAR VOLUME 92.9 fL (81.0-99.0); MEAN PLATELET VOLUME 7.3 fl (7.4-10.4); MONOCYTES % 5.7 % (2.0-8.0); PLATELET 220 x1000/uL (130-400); RED BLOOD CELL COUNT 3.91 mill/uL (4.2-5.4); RED CELL DISTRIBUTION WIDTH 15.5 % (11.6-14.6)
[2020-01-13 23:58] LABS: CHLORIDE 109 mEq/L (98-107)
[2020-01-14] VITALS (32 sets, daily range): BP systolic 88–121; BP diastolic 26–81
[2020-01-14] MEDS ORDERED: HEPARIN 5000 UNITS/ML VIAL IV SCH (00:15)
[2020-01-14] MEDS ORDERED: HEPARIN 25,000 UNITS PREMIX 500 ML IV PRN (00:15)
[2020-01-14] MEDS ORDERED: ASPIRIN 325MG EC TABLET PO SCH (00:15)
[2020-01-14] MEDS ORDERED: FENTANYL CITRATE/PF 50MCG/ML 2ML VIAL ONE (01:35)
[2020-01-14] MEDS ORDERED: MIDAZOLAM HCL 2 MG/2 ML VIAL ONE (01:35)
[2020-01-14] MEDS ORDERED: LIDOCAINE HCL 1% 20ML VIAL (Pyxis) INJ ONE (01:35)
[2020-01-14] MEDS ORDERED: IODIXANOL 320MG/ML 100 ML BOTTLE IV ONE (01:36)
[2020-01-14 01:51] LABS: INR 1.1; PARTIAL THROMBOPLASTIN TIME 27.5 sec (23.4-31.0); PROTHROMBIN TIME 11.4 sec (9.6-11.0)
[2020-01-14] MEDS ORDERED: IOHEXOL-300 100 ML BOTTLE ONE (02:20)
[2020-01-14] MEDS ORDERED: DOPAMINE 400MG/250ML PREMIX 0 ML IV ONE (02:23)
[2020-01-14] MEDS ORDERED: ATROPINE SULFATE 0.1MG/ML 10ML DISP.SYRIN ONE (02:37)
[2020-01-14] MEDS ORDERED: ATROPINE SULFATE 1MG/10ML SYR IV PRN (03:00)
[2020-01-14] MEDS ORDERED: ONDANSETRON HCL 4MG/2ML INJ IV PRN (03:00)
[2020-01-14] MEDS ORDERED: ACETAMINOPHEN 325MG TABLET PO PRN (03:00)
[2020-01-14] MEDS ORDERED: TICAGRELOR 90 MG TABLET PO ONE (03:06)
[2020-01-14] MEDS: SODIUM CHLORIDE 0.45% 1,000 ML IV SCH ×2 (05:42→18:34)
[2020-01-14 05:49] LABS: HEMATOCRIT. 36.9 % (36.0-48.0); HEMOGLOBIN. 12.1 g/dL (12.0-16.0); MEAN CORPUSCULAR HEMOGLOBIN 30.5 pg (28.0-32.0); MEAN CORPUSCULAR VOLUME 93.3 fL (81.0-99.0); MEAN PLATELET VOLUME 7.3 fl (7.4-10.4); PLATELET 227 x1000/uL (130-400); RED BLOOD CELL COUNT 3.96 mill/uL (4.2-5.4); RED CELL DISTRIBUTION WIDTH 15.6 % (11.6-14.6)
[2020-01-14 06:03] LABS: CHLORIDE 108 mEq/L (98-107)
[2020-01-14 08:14] LABS: PLATELET ESTIMATE NORMAL
[2020-01-14] MEDS ORDERED: IPRATROPIUM/ALBUTEROL 0.5-3(2.5)MG/3ML NEB HHN PRN (10:30)
[2020-01-14] MEDS: MORPHINE SULFATE 2 MG/ML CPJ (NOT FOR IM USE) IV PRN ×2 (12:18→20:13)
[2020-01-14] MEDS ORDERED: HEPARIN SODIUM 1,000 UNIT/1ML VIAL IV ONE (12:43)
[2020-01-14] MEDS: CLOPIDOGREL 75MG TABLET PO SCH (14:50)
[2020-01-14] MEDS: DIPHENHYDRAMINE 25MG CAPSULE PO PRN ×2 (14:50→20:13)
[2020-01-14] MEDS ORDERED: ATORVASTATIN CALCIUM 40MG TABLET PO SCH (21:00)
[2020-01-15] VITALS (9 sets, daily range): BP systolic 94–116; BP diastolic 60–76
[2020-01-15] MEDS: DIPHENHYDRAMINE 25MG CAPSULE PO PRN (05:01)
[2020-01-15 07:16] LABS: CHLORIDE 110 mEq/L (98-107)
[2020-01-15] MEDS: SODIUM CHLORIDE 0.45% 1,000 ML IV SCH (07:40)
[2020-01-15 08:02] LABS: BASOPHILS % 0.4 % (0.0-2.0); EOSINOPHILS % 3.4 % (0.0-5.0); HEMATOCRIT. 33.3 % (36.0-48.0); LYMPHOCYTES % 14.9 % (20.0-50.0); MEAN CORPUSCULAR HEMOGLOBIN 30.4 pg (28.0-32.0); MEAN CORPUSCULAR VOLUME 92.1 fL (81.0-99.0); MEAN PLATELET VOLUME 7.7 fl (7.4-10.4); MONOCYTES % 9.3 % (2.0-8.0); PLATELET 238 x1000/uL (130-400); RED BLOOD CELL COUNT 3.62 mill/uL (4.2-5.4); RED CELL DISTRIBUTION WIDTH 15.5 % (11.6-14.6)
[2020-01-15] MEDS: CLOPIDOGREL 75MG TABLET PO SCH (08:28)
[2020-01-15] MEDS: MORPHINE SULFATE 2 MG/ML CPJ (NOT FOR IM USE) IV PRN (08:29)
[2020-01-15] MEDS ORDERED: ASPIRIN 81MG TABLET PO SCH (09:00)
[2020-01-15] MEDS ORDERED: CLOP75TA15 PO (09:23)
[2020-01-15] MEDS ORDERED: FLUT1DIS3 IH (09:23)
[2020-01-15] MEDS ORDERED: LIP40 PO (09:23)
[2020-01-15] MEDS ORDERED: ASPI-1160 PO (09:23)
[2020-01-15] MEDS ORDERED: ALBU18HF2 IH (09:23)
[2020-01-15] MEDS ORDERED: FUROSEMIDE 40MG/4ML VIAL IVP SCH (12:15)
[2020-01-15] MEDS ORDERED: FURO-151 MT (12:16)
[2020-01-15 14:17] LABS: CLARITY URINE CLEAR (CLEAR); COLOR URINE YELLOW (YELLOW); KETONES URINE NEGATIVE (NEGATIVE); LEUKOCYTE ESTERASE URINE TRACE (NEGATIVE); NITRITE URINE NEGATIVE (NEGATIVE); OCCULT BLOOD URINE NEGATIVE (NEGATIVE); PROTEIN URINE NEGATIVE (NEGATIVE); UROBILINOGEN URINE 0.2 E.U./dL (0.2-1.0)
[2020-01-15 15:01] LABS: *AMPHETAMINES SCREEN URINE NEGATIVE (NEGATIVE); *BARBITURATES SCREEN URINE NEGATIVE (NEGATIVE); *BENZODIAZEPINES SCREEN URINE NEGATIVE (NEGATIVE); *COCAINE SCREEN URINE PRESUMTIVE POSITIVE (NEGATIVE); METHADONE URINE SCREEN NEGATIVE (NEGATIVE); OPIATES URINE SCREEN PRESUMTIVE POSITIVE (NEGATIVE)
[2020-01-15 15:02] LABS: CANNABINOID URINE SCREEN NEGATIVE (NEGATIVE); PHENCYCLIDINE URINE SCREEN NEGATIVE (NEGATIVE)
== END 2020-01-15 15:33 | disposition home or self-care (01) | DRG 174 ==
LOC: ER 22:50 → CVICU 01-14 00:29 → ENRESERV 01-14 01:50 → 3WST 01-14 23:30
PROVIDERS: ADMIT Internal Medicine; ATTEND Internal Medicine
PROC: 027034Z Dilation of Coronary Artery, One Artery with Drug-eluting Intraluminal Device, Percutaneous Approach (ICD-10-PCS; principal; 2020-01-14)
PROC: B2151ZZ Fluoroscopy of Left Heart using Low Osmolar Contrast (ICD-10-PCS; 2020-01-14)
DX: I21.19 ST elevation (STEMI) myocardial infarction involving other coronary artery of inferior wall (principal); J44.9 Chronic obstructive pulmonary disease, unspecified; E43 Unspecified severe protein-calorie malnutrition; E87.8 Other disorders of electrolyte and fluid balance, not elsewhere classified; I50.9 Heart failure, unspecified; I11.0 Hypertensive heart disease with heart failure; M32.9 Systemic lupus erythematosus, unspecified; I50.21 Acute systolic (congestive) heart failure; Z87.891 Personal history of nicotine dependence; I25.2 Old myocardial infarction; Z68.26 Body mass index [BMI] 26.0-26.9, adult; Z95.5 Presence of coronary angioplasty implant and graft; Z79.899 Other long term (current) drug therapy
CPT/HCPCS: 36415; 71045; 80048; 80053; 80305; 81003; 82040; 83735; 83880; 84134; 84145; 84484; 85025; 85347; 92941; 93005; 93306; 93458; 93970; 94640; 99291; C1725; C1757; C1760; C1769; C1874; C1887; C1893; J0461; J1265; J1644; J1940; J2250; J2270; J2930; J3010; J3475; J3490; L1830; Q0163; Q9967; J8499

== ENCOUNTER 2020-02-24 19:15 | Inpatient (IN) | payer MEDICAID, OTHER ==
[~2020-02-24] VITALS: Ht 165.1 cm; Wt 77.1 kg
[2020-02-24] MEDS: FUROSEMIDE 40MG/4ML VIAL IVP ONE (04:15)
[~2020-02-24 19:15] MED LIST changes: +ASPI-1160 PO; +CLOP75TA15 PO; +FURO-151 MT; +LIP40 PO
[2020-02-24] MEDS ORDERED: ASPIRIN 81MG TABLET PO ONE (20:00)
[2020-02-24] MEDS ORDERED: NITROGLYCERIN 0.4MG TABLET SL SL PRN (20:00)
[2020-02-24 20:42] LABS: HEMATOCRIT. 33.1 % (36.0-48.0); HEMOGLOBIN. 10.9 g/dL (12.0-16.0); MEAN CORPUSCULAR HEMOGLOBIN 31.5 pg (28.0-32.0); MEAN CORPUSCULAR VOLUME 95.7 fL (81.0-99.0); MEAN PLATELET VOLUME 7.9 fl (7.4-10.4); PLATELET 215 x1000/uL (130-400); RED BLOOD CELL COUNT 3.46 mill/uL (4.2-5.4)
[2020-02-24 20:53] LABS: CHLORIDE 110 mEq/L (98-107)
[2020-02-24 20:56] LABS: INR 1.1; PARTIAL THROMBOPLASTIN TIME 28.5 sec (23.4-31.0); PROTHROMBIN TIME 11.4 sec (9.6-11.0)
[2020-02-24] MEDS ORDERED: POTASSIUM CHLORIDE 20MEQ TABLET SR PO ONE (21:15)
[2020-02-24] MEDS ORDERED: MAGNESIUM 1 G PREMIX 100 ML IV ONE (22:00)
[2020-02-24 23:21] LABS: PLATELET ESTIMATE NORMAL
[2020-02-25] MEDS ORDERED: DIPHENHYDRAMINE 25MG CAPSULE PO SCH (00:15)
[2020-02-25] MEDS ORDERED: KETOROLAC 30MG/ML VIAL IV SCH (01:00)
[2020-02-25] MEDS ORDERED: FUROSEMIDE 40MG/4ML VIAL IVP SCH (04:15)
[2020-02-25 09:30] VITALS: BP 154/88
[2020-02-25] MEDS ORDERED: ACETAMINOPHEN 325MG TABLET PO PRN (09:30)
[2020-02-25] MEDS ORDERED: MAGNESIUM/ALUMINUM HYDROXIDE/SIMETHICONE 30ML UDC PO PRN (09:30)
[2020-02-25] MEDS ORDERED: GUAIFENESIN 200MG/10ML SUGAR FREE UDC PO PRN (09:30)
[2020-02-25] MEDS ORDERED: CLONIDINE 0.1MG TABLET PO PRN (09:30)
[2020-02-25] MEDS ORDERED: LORAZEPAM 2MG/ML CPJ IV PRN (09:30)
[2020-02-25] MEDS ORDERED: ONDANSETRON HCL 4MG/2ML INJ IV PRN (09:30)
[2020-02-25] MEDS ORDERED: DOCUSATE SODIUM 100MG CAPSULE PO PRN (09:30)
[2020-02-25] MEDS: ENOXAPARIN 40MG/0.4ML SYR SUBCUT SCH (10:48)
[2020-02-25] MEDS: HYDROCODONE/ACETAMINOPHEN 10/325MG TABLET PO PRN (11:02)
[2020-02-25] MEDS: DIPHENHYDRAMINE 50MG/ML VIAL IV PRN ×3 (11:02→20:38)
[2020-02-25 12:00] VITALS: BP 132/66
[2020-02-25] MEDS: LOSARTAN POTASSIUM 25 MG TABLET PO SCH (14:06)
[2020-02-25] MEDS: MAGNESIUM GLUCONATE 500MG TABLET PO SCH (14:06)
[2020-02-25] MEDS: FUROSEMIDE 40MG/4ML VIAL IVP SCH (14:06)
[2020-02-25] MEDS: CLOPIDOGREL 75MG TABLET PO SCH (14:06)
[2020-02-25] MEDS: POTASSIUM CHLORIDE 20MEQ TABLET SR PO SCH (14:07)
[2020-02-25] MEDS: ASPIRIN 81MG TABLET PO SCH (14:07)
[2020-02-25] MEDS: METHYLPREDNISOLONE SOD SUCC 40 MG/ML VIAL IV SCH (14:08)
[2020-02-25] MEDS: ALBUTEROL 6.7GM HFA INHALER ORI SCH ×2 (14:17→21:55)
[2020-02-25 16:00] VITALS: BP 99/59
[2020-02-25 18:34] LABS: CLARITY URINE CLEAR (CLEAR); COLOR URINE YELLOW (YELLOW); KETONES URINE NEGATIVE (NEGATIVE); LEUKOCYTE ESTERASE URINE NEGATIVE (NEGATIVE); NITRITE URINE NEGATIVE (NEGATIVE); OCCULT BLOOD URINE NEGATIVE (NEGATIVE); PROTEIN URINE NEGATIVE (NEGATIVE); SPECIFIC GRAVITY URINE 1.016 (1.005-1.030); UROBILINOGEN URINE 0.2 E.U./dL (0.2-1.0)
[2020-02-25 18:51] LABS: *AMPHETAMINES SCREEN URINE NEGATIVE (NEGATIVE); *BARBITURATES SCREEN URINE NEGATIVE (NEGATIVE); *BENZODIAZEPINES SCREEN URINE NEGATIVE (NEGATIVE); *COCAINE SCREEN URINE PRESUMTIVE POSITIVE (NEGATIVE); METHADONE URINE SCREEN NEGATIVE (NEGATIVE); OPIATES URINE SCREEN PRESUMTIVE POSITIVE (NEGATIVE)
[2020-02-25 18:53] LABS: CANNABINOID URINE SCREEN NEGATIVE (NEGATIVE); PHENCYCLIDINE URINE SCREEN NEGATIVE (NEGATIVE)
[2020-02-25 20:00] VITALS: BP 99/55
[2020-02-26] VITALS: BP 111/76
[2020-02-26] MEDS: DIPHENHYDRAMINE 50MG/ML VIAL IV PRN ×4 (01:46→23:02)
[2020-02-26] MEDS: HYDROCODONE/ACETAMINOPHEN 10/325MG TABLET PO PRN (01:55)
[2020-02-26] MEDS: IPRATROPIUM/ALBUTEROL 0.5-3(2.5)MG/3ML NEB HHN PRN ×2 (02:00→08:57)
[2020-02-26 04:00] VITALS: BP 115/66
[2020-02-26] MEDS: METHYLPREDNISOLONE SOD SUCC 40 MG/ML VIAL IV SCH ×2 (05:08→17:28)
[2020-02-26 08:00] VITALS: BP 106/63
[2020-02-26] MEDS: LOSARTAN POTASSIUM 25 MG TABLET PO SCH (09:00)
[2020-02-26] MEDS: POTASSIUM CHLORIDE 20MEQ TABLET SR PO SCH (09:18)
[2020-02-26] MEDS: ASPIRIN 81MG TABLET PO SCH (09:18)
[2020-02-26] MEDS: ENOXAPARIN 40MG/0.4ML SYR SUBCUT SCH (09:19)
[2020-02-26] MEDS: MAGNESIUM GLUCONATE 500MG TABLET PO SCH (09:19)
[2020-02-26] MEDS: CLOPIDOGREL 75MG TABLET PO SCH (09:19)
[2020-02-26] MEDS: FUROSEMIDE 40MG/4ML VIAL IVP SCH (09:19)
[2020-02-26 11:12] LABS: BASOPHILS % 0.5 % (0.0-2.0); EOSINOPHILS % 0.6 % (0.0-5.0); HEMATOCRIT. 31.4 % (36.0-48.0); HEMOGLOBIN. 10.3 g/dL (12.0-16.0); MEAN CORPUSCULAR HEMOGLOBIN 31.3 pg (28.0-32.0); MEAN PLATELET VOLUME 7.8 fl (7.4-10.4); MONOCYTES % 3.7 % (2.0-8.0); NEUTROPHILS % 76.2 % (40.0-76.0); PLATELET 231 x1000/uL (130-400); RED CELL DISTRIBUTION WIDTH 17.1 % (11.6-14.6)
[2020-02-26 11:15] LABS: CHLORIDE 108 mEq/L (98-107)
[2020-02-26 12:00] VITALS: BP 126/94
[2020-02-26 16:00] VITALS: BP 108/63
[2020-02-26] MEDS: IPRATROPIUM/ALBUTEROL 0.5-3(2.5)MG/3ML NEB HHN SCH ×2 (16:35→21:21)
[2020-02-26] MEDS: PANTOT AC/MIN OIL/PET HY-PHL OINT (AQUAPHOR) TOP SCH (17:28)
[2020-02-26 20:00] VITALS: BP 129/66
[2020-02-27] VITALS: BP 101/68
[2020-02-27] MEDS: IPRATROPIUM/ALBUTEROL 0.5-3(2.5)MG/3ML NEB HHN SCH ×3 (01:04→15:44)
[2020-02-27 02:00] VITALS: BP 104/56
[2020-02-27 04:00] VITALS: BP 104/56
[2020-02-27] MEDS: DIPHENHYDRAMINE 50MG/ML VIAL IV PRN ×2 (04:53→13:44)
[2020-02-27] MEDS: METHYLPREDNISOLONE SOD SUCC 40 MG/ML VIAL IV SCH (05:43)
[2020-02-27 06:27] LABS: CHLORIDE 109 mEq/L (98-107)
[2020-02-27 06:36] LABS: HEMATOCRIT. 28.4 % (36.0-48.0); HEMOGLOBIN. 9.3 g/dL (12.0-16.0); MEAN CORPUSCULAR VOLUME 95.2 fL (81.0-99.0); MEAN PLATELET VOLUME 8.3 fl (7.4-10.4); PLATELET 225 x1000/uL (130-400); RED BLOOD CELL COUNT 2.99 mill/uL (4.2-5.4); RED CELL DISTRIBUTION WIDTH 17.5 % (11.6-14.6)
[2020-02-27 08:00] VITALS: BP 106/67
[2020-02-27] MEDS: LOSARTAN POTASSIUM 25 MG TABLET PO SCH (09:00)
[2020-02-27] MEDS: FUROSEMIDE 40MG/4ML VIAL IVP ONE (09:15)
[2020-02-27] MEDS: MAGNESIUM GLUCONATE 500MG TABLET PO SCH (09:16)
[2020-02-27] MEDS: ASPIRIN 81MG TABLET PO SCH (09:16)
[2020-02-27] MEDS: ENOXAPARIN 40MG/0.4ML SYR SUBCUT SCH (09:16)
[2020-02-27] MEDS: POTASSIUM CHLORIDE 20MEQ TABLET SR PO SCH (09:16)
[2020-02-27] MEDS: PANTOT AC/MIN OIL/PET HY-PHL OINT (AQUAPHOR) TOP SCH (09:17)
[2020-02-27] MEDS: CLOPIDOGREL 75MG TABLET PO SCH (09:17)
[2020-02-27] MEDS: FUROSEMIDE 40MG/4ML VIAL IVP SCH (09:41)
[2020-02-27 12:00] VITALS: BP 99/55
[2020-02-27 12:36] VITALS: BP 106/67
[2020-02-27] MEDS: HYDROCODONE/ACETAMINOPHEN 10/325MG TABLET PO PRN (12:36)
[2020-02-27 16:17] LABS: PLATELET ESTIMATE NORMAL
== END 2020-02-27 17:45 | disposition home or self-care (01) | DRG 243 ==
LOC: ER 19:15 → 7WST 02-25 00:49 → EDBEDREQ 02-25 00:58 → EDBEDREQDT 02-25 00:58 → EDBEDREQTM 02-25 00:58 → CANRESERV 02-25 02:01 → ENRESERV 02-25 02:01 → 7WST 02-25 09:17 → 8WST 02-26 01:36
PROVIDERS: ADMIT Internal Medicine; ATTEND Internal Medicine
DX: K21.9 Gastro-esophageal reflux disease without esophagitis (principal); J96.00 Acute respiratory failure, unspecified whether with hypoxia or hypercapnia; I25.10 Atherosclerotic heart disease of native coronary artery without angina pectoris; I27.81 Cor pulmonale (chronic); I27.20 Pulmonary hypertension, unspecified; I42.9 Cardiomyopathy, unspecified; I50.32 Chronic diastolic (congestive) heart failure; J44.9 Chronic obstructive pulmonary disease, unspecified; J98.11 Atelectasis; I11.0 Hypertensive heart disease with heart failure; F14.10 Cocaine abuse, uncomplicated; E87.6 Hypokalemia; E83.42 Hypomagnesemia; D72.1 Eosinophilia; D64.9 Anemia, unspecified; L30.9 Dermatitis, unspecified; L40.9 Psoriasis, unspecified; M32.9 Systemic lupus erythematosus, unspecified; F12.10 Cannabis abuse, uncomplicated; F17.210 Nicotine dependence, cigarettes, uncomplicated; I36.1 Nonrheumatic tricuspid (valve) insufficiency; Z20.828 Contact with and (suspected) exposure to other viral communicable diseases; Z59.0 Homelessness; I25.2 Old myocardial infarction; Z88.1 Allergy status to other antibiotic agents; Z88.0 Allergy status to penicillin; Z79.82 Long term (current) use of aspirin; Z79.899 Other long term (current) drug therapy; Z95.5 Presence of coronary angioplasty implant and graft; Z79.02 Long term (current) use of antithrombotics/antiplatelets; R65.11 Systemic inflammatory response syndrome (SIRS) of non-infectious origin with acute organ dysfunction; F19.10 Other psychoactive substance abuse, uncomplicated; E44.1 Mild protein-calorie malnutrition; Z68.28 Body mass index [BMI] 28.0-28.9, adult; R65.10 Systemic inflammatory response syndrome (SIRS) of non-infectious origin without acute organ dysfunction
CPT/HCPCS: 36415; 71045; 80048; 80053; 80305; 81003; 83735; 83880; 84484; 85025; 93005; 94640; 99285; J1200; J1650; J1885; J1940; J2920; J3475; Q0163; U0003-CS

== ENCOUNTER 2020-11-13 15:01 | Inpatient (IN) | payer MEDICAID, OTHER ==
[~2020-11-13] VITALS: Ht 160 cm; Wt 84.9 kg
[2020-11-13] MEDS ORDERED: HYDROCODONE/ACETAMINOPHEN 5/325MG TABLET PO STA (16:29)
[2020-11-13] MEDS ORDERED: ASPIRIN 81MG TABLET PO ONE (16:30)
[2020-11-13 18:18] LABS: HEMATOCRIT. 36.2 % (36.0-48.0); MEAN CORPUSCULAR VOLUME 90.1 fL (81.0-99.0); MEAN PLATELET VOLUME 7.4 fl (7.4-10.4); PLATELET 248 x1000/uL (130-400); RED BLOOD CELL COUNT 4.01 mill/uL (4.2-5.4); RED CELL DISTRIBUTION WIDTH 15.4 % (11.6-14.6)
[2020-11-13 18:24] LABS: CHLORIDE 111 mEq/L (98-107)
[2020-11-13 18:27] LABS: ETHANOL BLOOD < 10 mg/dL
[2020-11-13] MEDS ORDERED: FUROSEMIDE 20MG TABLET PO ONE (18:45)
[2020-11-13 18:59] LABS: PLATELET ESTIMATE NORMAL
[2020-11-14] VITALS (7 sets, daily range): BP systolic 102–124; BP diastolic 54–86
[2020-11-14] MEDS ORDERED: CLONIDINE 0.1MG TABLET PO PRN (02:30)
[2020-11-14] MEDS: DIPHENHYDRAMINE 50MG CAPSULE PO PRN ×4 (02:54→23:49)
[2020-11-14] MEDS: HEPARIN 5000 UNITS/ML VIAL SUBCUT SCH ×4 (05:07→22:00)
[2020-11-14] MEDS ORDERED: IPRATROPIUM/ALBUTEROL 0.5-3(2.5)MG/3ML NEB HHN PRN (07:45)
[2020-11-14] MEDS ORDERED: FUROSEMIDE 20MG TABLET PO SCH (09:00)
[2020-11-14] MEDS ORDERED: METHYLPREDNISOLONE SOD SUCC 125 MG/2 ML VIAL IV SCH (18:00)
[2020-11-14] MEDS: FUROSEMIDE 40MG/4ML VIAL IVP SCH (18:34)
[2020-11-14] MEDS: CLOPIDOGREL 75MG TABLET PO SCH (18:35)
[2020-11-14] MEDS: ASPIRIN 81MG TABLET PO SCH (18:35)
[2020-11-14] MEDS: HYDROXYCHLOROQUINE SULFATE 200MG TABLET PO SCH (21:33)
[2020-11-14] MEDS: PREDNISONE 10MG TABLET PO SCH (21:33)
[2020-11-14] MEDS: ATORVASTATIN CALCIUM 40MG TABLET PO SCH (21:33)
[2020-11-14] MEDS: HYDROXYZINE 25MG TABLET PO PRN (21:33)
[2020-11-14] MEDS: TRIAMCINOLONE ACETONIDE 0.1% CREAM 15GM TOP SCH (21:34)
[2020-11-14] MEDS: HYDROCORTISONE 2.5% CREAM 20GM TOP SCH (21:34)
[2020-11-14] MEDS: AZATHIOPRINE 50MG TABLET PO SCH (21:38)
[2020-11-14] MEDS: MYCOPHENOLATE MOFETIL 250MG CAPSULE PO SCH (21:38)
[2020-11-15] MEDS: HYDROXYZINE 25MG TABLET PO PRN ×3 (03:32→18:09)
[2020-11-15 04:00] VITALS: BP 132/63
[2020-11-15] MEDS: HEPARIN 5000 UNITS/ML VIAL SUBCUT SCH ×3 (06:00→21:41)
[2020-11-15 06:08] LABS: BASOPHILS % 0.9 % (0.0-2.0); EOSINOPHILS % 0.1 % (0.0-5.0); HEMATOCRIT. 35.1 % (36.0-48.0); LYMPHOCYTES % 12.7 % (20.0-50.0); MEAN CORPUSCULAR VOLUME 90.4 fL (81.0-99.0); MEAN PLATELET VOLUME 7.6 fl (7.4-10.4); MONOCYTES % 3.6 % (2.0-8.0); NEUTROPHILS % 82.7 % (40.0-76.0); PLATELET 243 x1000/uL (130-400); RED BLOOD CELL COUNT 3.88 mill/uL (4.2-5.4)
[2020-11-15 06:16] LABS: CHLORIDE 106 mEq/L (98-107)
[2020-11-15 06:27] LABS: CREATINE KINASE 39 IU/L (26-192)
[2020-11-15] MEDS: PREDNISONE 10MG TABLET PO SCH ×2 (06:55→18:09)
[2020-11-15 08:00] VITALS: BP 109/73
[2020-11-15] MEDS: MYCOPHENOLATE MOFETIL 250MG CAPSULE PO SCH ×2 (08:48→21:39)
[2020-11-15] MEDS: TRIAMCINOLONE ACETONIDE 0.1% CREAM 15GM TOP SCH (08:48)
[2020-11-15] MEDS: AZATHIOPRINE 50MG TABLET PO SCH ×2 (08:49→16:25)
[2020-11-15] MEDS: CLOPIDOGREL 75MG TABLET PO SCH (08:49)
[2020-11-15] MEDS: HYDROCORTISONE 2.5% CREAM 20GM TOP SCH ×2 (08:49→21:41)
[2020-11-15] MEDS: HYDROXYCHLOROQUINE SULFATE 200MG TABLET PO SCH ×2 (08:49→16:25)
[2020-11-15] MEDS: DIPHENHYDRAMINE 50MG CAPSULE PO PRN (08:49)
[2020-11-15] MEDS: ASPIRIN 81MG TABLET PO SCH (08:49)
[2020-11-15] MEDS: FUROSEMIDE 40MG/4ML VIAL IVP SCH (08:49)
[2020-11-15 12:00] VITALS: BP 111/39
[2020-11-15 16:00] VITALS: BP 91/52
[2020-11-15] MEDS: DIPHENHYDRAMINE 50MG/ML VIAL IV PRN ×2 (16:25→21:39)
[2020-11-15 20:00] VITALS: BP 105/58
[2020-11-15] MEDS: ATORVASTATIN CALCIUM 40MG TABLET PO SCH (21:39)
[2020-11-16] VITALS (7 sets, daily range): BP systolic 101–117; BP diastolic 44–59
[2020-11-16] MEDS: HYDROXYZINE 25MG TABLET PO PRN ×3 (00:14→15:50)
[2020-11-16] MEDS: HEPARIN 5000 UNITS/ML VIAL SUBCUT SCH ×3 (06:00→21:43)
[2020-11-16] MEDS: PREDNISONE 10MG TABLET PO SCH ×2 (06:27→17:46)
[2020-11-16] MEDS: MINERAL OIL/PETROLATUM,WHITE CREAM 113GM JAR TOP SCH ×5 (06:31→21:43)
[2020-11-16 06:42] LABS: BASOPHILS % 0.4 % (0.0-2.0); EOSINOPHILS % 0.4 % (0.0-5.0); HEMOGLOBIN. 11.2 g/dL (12.0-16.0); LYMPHOCYTES % 16.8 % (20.0-50.0); MEAN CORPUSCULAR HEMOGLOBIN 29.5 pg (28.0-32.0); MEAN CORPUSCULAR VOLUME 89.6 fL (81.0-99.0); MEAN PLATELET VOLUME 7.8 fl (7.4-10.4); MONOCYTES % 12.1 % (2.0-8.0); NEUTROPHILS % 70.3 % (40.0-76.0); PLATELET 285 x1000/uL (130-400); RED BLOOD CELL COUNT 3.79 mill/uL (4.2-5.4); RED CELL DISTRIBUTION WIDTH 15.4 % (11.6-14.6)
[2020-11-16 06:56] LABS: CHLORIDE 104 mEq/L (98-107)
[2020-11-16] MEDS: ASPIRIN 81MG TABLET PO SCH (09:00)
[2020-11-16 09:10] LABS: G6PD RBC 4.13 x10E6/uL (3.77-5.28)
[2020-11-16] MEDS: CLOPIDOGREL 75MG TABLET PO SCH (09:44)
[2020-11-16] MEDS: AZATHIOPRINE 50MG TABLET PO SCH ×2 (09:44→17:46)
[2020-11-16] MEDS: MYCOPHENOLATE MOFETIL 250MG CAPSULE PO SCH ×2 (09:44→21:43)
[2020-11-16] MEDS: HYDROXYCHLOROQUINE SULFATE 200MG TABLET PO SCH ×2 (09:44→17:45)
[2020-11-16] MEDS: HYDROCORTISONE 2.5% CREAM 20GM TOP SCH ×2 (09:45→21:44)
[2020-11-16] MEDS: TRIAMCINOLONE ACETONIDE 0.1 % OINT 15GM TOP SCH ×2 (09:46→21:44)
[2020-11-16] MEDS: FUROSEMIDE 40MG/4ML VIAL IVP SCH (11:56)
[2020-11-16] MEDS: DIPHENHYDRAMINE 50MG/ML VIAL IV PRN ×2 (11:56→21:50)
[2020-11-16] MEDS ORDERED: ACETAMINOPHEN 650MG/20.3ML UDC PO PRN (16:00)
[2020-11-16] MEDS ORDERED: NALOXONE HCL 0.4 MG/ML 1ML VIAL IV PRN (16:00)
[2020-11-16] MEDS: MORPHINE SULFATE 2 MG/ML CPJ (NOT FOR IM USE) IV PRN (16:02)
[2020-11-16] MEDS: ATORVASTATIN CALCIUM 40MG TABLET PO SCH (21:42)
[2020-11-16] MEDS: HYDROCODONE/ACETAMINOPHEN 5/325MG TABLET PO PRN (21:51)
[2020-11-17] VITALS: BP 108/53
[2020-11-17] MEDS: MORPHINE SULFATE 2 MG/ML CPJ (NOT FOR IM USE) IV PRN ×2 (01:07→09:10)
[2020-11-17 04:00] VITALS: BP 129/81
[2020-11-17] MEDS: HEPARIN 5000 UNITS/ML VIAL SUBCUT SCH ×3 (05:26→21:43)
[2020-11-17 08:00] VITALS: BP 103/53
[2020-11-17] MEDS: FUROSEMIDE 40MG/4ML VIAL IVP SCH (08:54)
[2020-11-17] MEDS: PREDNISONE 10MG TABLET PO SCH ×2 (08:54→17:32)
[2020-11-17] MEDS: ASPIRIN 81MG TABLET PO SCH (08:54)
[2020-11-17] MEDS: CLOPIDOGREL 75MG TABLET PO SCH (08:55)
[2020-11-17] MEDS: MYCOPHENOLATE MOFETIL 250MG CAPSULE PO SCH ×2 (08:55→21:43)
[2020-11-17] MEDS: MINERAL OIL/PETROLATUM,WHITE CREAM 113GM JAR TOP SCH ×5 (08:56→21:46)
[2020-11-17] MEDS: TRIAMCINOLONE ACETONIDE 0.1 % OINT 15GM TOP SCH ×2 (08:57→21:47)
[2020-11-17] MEDS: HYDROCORTISONE 2.5% CREAM 20GM TOP SCH ×2 (08:57→21:46)
[2020-11-17] MEDS: AZATHIOPRINE 50MG TABLET PO SCH ×2 (09:08→17:00)
[2020-11-17] MEDS: DIPHENHYDRAMINE 50MG/ML VIAL IV PRN ×2 (09:08→17:37)
[2020-11-17] MEDS: HYDROXYCHLOROQUINE SULFATE 200MG TABLET PO SCH ×2 (09:08→17:32)
[2020-11-17 12:00] VITALS: BP 103/67
[2020-11-17 16:00] VITALS: BP 96/52
[2020-11-17 20:00] VITALS: BP 118/70
[2020-11-17] MEDS: ATORVASTATIN CALCIUM 40MG TABLET PO SCH (21:43)
[2020-11-18] VITALS: BP 102/55
[2020-11-18] MEDS: MORPHINE SULFATE 2 MG/ML CPJ (NOT FOR IM USE) IV PRN (01:32)
[2020-11-18 04:00] VITALS: BP 117/71
[2020-11-18] MEDS: DIPHENHYDRAMINE 50MG/ML VIAL IV PRN (05:52)
[2020-11-18] MEDS: HEPARIN 5000 UNITS/ML VIAL SUBCUT SCH ×2 (05:52→14:00)
[2020-11-18 08:30] VITALS: BP 121/79
[2020-11-18] MEDS: ASPIRIN 81MG TABLET PO SCH (08:38)
[2020-11-18] MEDS: MYCOPHENOLATE MOFETIL 250MG CAPSULE PO SCH (08:48)
[2020-11-18] MEDS: FUROSEMIDE 40MG/4ML VIAL IVP SCH (08:48)
[2020-11-18] MEDS: HYDROCODONE/ACETAMINOPHEN 5/325MG TABLET PO PRN (08:48)
[2020-11-18] MEDS: PREDNISONE 10MG TABLET PO SCH (08:48)
[2020-11-18] MEDS: HYDROXYCHLOROQUINE SULFATE 200MG TABLET PO SCH (08:49)
[2020-11-18] MEDS: HYDROCORTISONE 2.5% CREAM 20GM TOP SCH (08:51)
[2020-11-18] MEDS: TRIAMCINOLONE ACETONIDE 0.1 % OINT 15GM TOP SCH (08:51)
[2020-11-18] MEDS: CLOPIDOGREL 75MG TABLET PO SCH (08:52)
[2020-11-18] MEDS: AZATHIOPRINE 50MG TABLET PO SCH (09:00)
[2020-11-18 09:06] LABS: ANTI-DNA DOUBLE STRANDED QUANT < 1 IU/mL (0-9)
[2020-11-18] MEDS ORDERED: [UNRECOGNIZED DRUG - CODE] TOP (09:29)
[2020-11-18] MEDS ORDERED: HYDR453.3 TOP (09:29)
[2020-11-18] MEDS ORDERED: TC1U15 TOP (09:29)
[2020-11-18] MEDS ORDERED: HYDR200T35 PO (09:29)
[2020-11-18] MEDS ORDERED: PRED10TA MT (09:29)
[2020-11-18 10:09] LABS: ACTIN (SMOOTH MUSCLE) ANTIBODY 8 Units (0-19); ANTI-MYELOPEROXIDASE AB < 9.0 U/mL (0.0-9.0); ANTI-PROTEINASE 3 ABS 7.2 U/mL (0.0-3.5)
[2020-11-18 11:17] VITALS: BP 123/62
[2020-11-18 12:00] VITALS: BP 123/62
[2020-11-18 15:07] LABS: ANA IFA Negative (.); ATYPICAL P-ANCA <1:20 titer (Neg:<1:20); CYTOPLASMIC C-ANCA <1:20 titer (Neg:<1:20); G6PD QUANTITATIVE 296 (127-427); PERINUCLEAR P-ANCA <1:20 titer (Neg:<1:20)
[2020-11-21 19:10] LABS: ALDOLASE 15.5 U/L (3.3-10.3)
== END 2020-11-18 15:45 | DRG 133 ==
LOC: ER 15:01 → 8WST 20:43 → EDBEDREQTM 20:44 → EDBEDREQ 20:44 → ENRESERV 23:27
PROVIDERS: ADMIT Internal Medicine; ATTEND Internal Medicine
DX: J96.00 Acute respiratory failure, unspecified whether with hypoxia or hypercapnia (principal); I50.33 Acute on chronic diastolic (congestive) heart failure; I27.21 Secondary pulmonary arterial hypertension; M32.9 Systemic lupus erythematosus, unspecified; I42.2 Other hypertrophic cardiomyopathy; J44.9 Chronic obstructive pulmonary disease, unspecified; I11.0 Hypertensive heart disease with heart failure; D64.9 Anemia, unspecified; D72.810 Lymphocytopenia; B07.9 Viral wart, unspecified; I25.10 Atherosclerotic heart disease of native coronary artery without angina pectoris; L30.9 Dermatitis, unspecified; M19.90 Unspecified osteoarthritis, unspecified site; R79.89 Other specified abnormal findings of blood chemistry; Z59.0 Homelessness; Z95.5 Presence of coronary angioplasty implant and graft; Z88.1 Allergy status to other antibiotic agents; Z88.0 Allergy status to penicillin; Z79.82 Long term (current) use of aspirin; Z79.899 Other long term (current) drug therapy; Z87.891 Personal history of nicotine dependence; I25.2 Old myocardial infarction; F19.10 Other psychoactive substance abuse, uncomplicated; Z71.51 Drug abuse counseling and surveillance of drug abuser; Z71.6 Tobacco abuse counseling
CPT/HCPCS: 36415; 71045; 80048; 80053; 80320; 82085; 82550; 82595; 82955; 83520; 83880; 84484; 84550; 85025; 85041; 85651; 86140; 86160; 86225; 86256; 86592; 86780; 93005; 99291; J1200; J1644; J1940; J2270; J2930; J7500; J7512; J7517; Q0163; G0480

== ENCOUNTER 2024-08-20 12:31 | Inpatient (IN) | payer MEDICARE, MEDICAID ==
[~2024-08-20] VITALS: Ht 160 cm; Wt 81.6 kg
[~2024-08-20 12:31] MED LIST changes: +HYDR-3735 PO; +PANT20TA17 PO; +PRED10TA MT; +TC1U15 TOP; +UMEC1DIS IH; +[UNRECOGNIZED DRUG - CODE] TOP
[2024-08-20] MEDS ORDERED: METHYLPREDNISOLONE SOD SUCC 125MG/2ML (ACT-O-VIAL) IV STA (12:36)
[2024-08-20 12:57] VITALS: PULSE 80; RESP 20
[2024-08-20] MEDS: IPRATROPIUM BROMIDE (0.02%) 0.5MG/2.5ML NEB HHN STA (12:57)
[2024-08-20] MEDS: ALBUTEROL (0.083%) 2.5MG/3ML NEB HHN STA (12:57)
[2024-08-20 14:55] LABS: BASOPHILS % 0.7 % (0.0-2.0); EOSINOPHILS % 0.4 % (0.0-5.0); HEMATOCRIT. 43.3 % (36.0-48.0); LYMPHOCYTES % 10.4 % (20.0-50.0); MEAN CORPUSCULAR HEMOGLOBIN 28.7 pg (28.0-32.0); MEAN CORPUSCULAR HGB CONC 32.4 g/dL (31.0-37.0); MEAN CORPUSCULAR VOLUME 88.7 fL (81.0-99.0); MEAN PLATELET VOLUME 8.6 fl (7.4-10.4); MONOCYTES % 3.2 % (2.0-8.0); NEUTROPHILS % 85.3 % (40.0-76.0); PLATELET 184 x1000/uL (130-400); RED BLOOD CELL COUNT 4.89 mill/uL (4.2-5.4); RED CELL DISTRIBUTION WIDTH 14.3 % (11.6-14.6); WHITE BLOOD COUNT 7.7 x1000/uL (4.5-11.0)
[2024-08-20 14:57] LABS: CHLORIDE 105 mEq/L (98-107); POTASSIUM 3.2 mEq/L (3.5-5.1); SODIUM 143 mEq/L (136-145)
[2024-08-20 14:58] LABS: CALCIUM 9.4 mg/dL (8.7-10.4); CARBON DIOXIDE 26 mEq/L (21-32)
[2024-08-20 15:03] LABS: CREATININE 0.8 mg/dL (0.6-1.0); GLUCOSE 111 mg/dL (70-105); TROPONIN I HIGH SENSITIVITY 15 ng/L (3.0-34); UREA NITROGEN BLOOD 10 mg/dL (9-23)
[2024-08-20 15:11] LABS: PROTHROMBIN TIME 10.4 sec (9.6-11.0)
[2024-08-20] MEDS: METHYLPREDNISOLONE SOD SUCC 125MG/2ML (ACT-O-VIAL) IV NR (15:17)
[2024-08-20] MEDS: ACETAMINOPHEN 325MG TABLET PO ONE (18:13)
[2024-08-21] VITALS (7 sets, daily range): BP systolic 118–150; BP diastolic 72–89; PULSE 47–104; RESP 18–22; TEMP 36.1–36.7; O2SAT 93–98
[2024-08-21] MEDS ORDERED: IPRATROPIUM/ALBUTEROL 0.5-3(2.5)MG/3ML NEB HHN NR (00:30)
[2024-08-21] MEDS: MAGNESIUM 2 G PREMIX 50 ML IV NR (00:30)
[2024-08-21] MEDS: BUDESONIDE 0.5MG/2ML NEB HHN SCH (00:30)
[2024-08-21 01:13] LABS: BG BASE EXCESS -1.9 mmol/L (-2.0-3.0); BG CARBOXYHEMOGLOBIN 0.2 % (0.5-1.5); BG DEOXYHEMOGLOBIN 10.2 % (0.0-5.0); BG FRACTION INSPIRED OXYGEN 21; BG HCO3 ACT 21.2 mmol/L (21.0-28.0); BG METHEMOGLOBIN 0.2 % (0.5-1.5); BG OXYGEN SATURATION 89.8 % (94.0-98.0); BG OXYHEMOGLOBIN 89.4 % (94.0-98.0); BG PO2 52.6 mmHg (83.0-108.0); BG SAMPLE SITE RIGHT RADIAL; BG VENT MODE ROOM AIR
[2024-08-21] MEDS ORDERED: DIPH-1205 PO (01:57)
[2024-08-21] MEDS: METHYLPREDNISOLONE SOD SUCC 125MG/2ML (ACT-O-VIAL) IV NR (02:00)
[2024-08-21] MEDS: AZITHROMYCIN 500MG/250ML 250 ML IV SCH (02:00)
[2024-08-21] MEDS: IPRATROPIUM/ALBUTEROL 0.5-3(2.5)MG/3ML NEB HHN SCH (04:13)
[2024-08-21 04:57] LABS: HEMATOCRIT. 42.1 % (36.0-48.0); HEMOGLOBIN. 14.1 g/dL (12.0-16.0); MEAN CORPUSCULAR HGB CONC 33.5 g/dL (31.0-37.0); MEAN CORPUSCULAR VOLUME 86.7 fL (81.0-99.0); MEAN PLATELET VOLUME 8.7 fl (7.4-10.4); PLATELET 204 x1000/uL (130-400); RED BLOOD CELL COUNT 4.85 mill/uL (4.2-5.4); RED CELL DISTRIBUTION WIDTH 14.1 % (11.6-14.6); WHITE BLOOD COUNT 6.9 x1000/uL (4.5-11.0)
[2024-08-21 05:00] LABS: DIFFERENTIAL COMMENT 1
[2024-08-21 05:02] LABS: CHLORIDE 106 mEq/L (98-107); POTASSIUM 4.1 mEq/L (3.5-5.1); SODIUM 141 mEq/L (136-145)
[2024-08-21 05:03] LABS: CARBON DIOXIDE 24 mEq/L (21-32)
[2024-08-21 05:08] LABS: CREATININE 0.9 mg/dL (0.6-1.0); GLUCOSE 144 mg/dL (70-105); UREA NITROGEN BLOOD 13 mg/dL (9-23)
[2024-08-21 05:10] LABS: ALANINE AMINOTRANSFERASE 13 IU/L (10-49); ALBUMIN 4.5 g/dL (3.2-4.8); ASPARTATE AMINOTRANSFERASE 11 IU/L (<34); PHOSPHORUS 2.5 mg/dL (2.5-4.9); TROPONIN I HIGH SENSITIVITY 12 ng/L (3.0-34)
[2024-08-21 05:11] LABS: BILIRUBIN TOTAL 0.5 mg/dL (0.1-1.0); PROTEIN TOTAL 7.4 g/dL (6.0-8.3)
[2024-08-21 07:09] LABS: PLATELET ESTIMATE NORMAL
[2024-08-21] MEDS: PANTOPRAZOLE SODIUM 40 MG/VIAL IV SCH (09:23)
[2024-08-21] MEDS: ASPIRIN 81MG TABLET PO SCH (09:23)
[2024-08-21] MEDS: HYDROXYZINE 25MG TABLET PO SCH (09:23)
[2024-08-21] MEDS: FUROSEMIDE 40MG TABLET PO SCH (09:24)
[2024-08-21] MEDS: ENOXAPARIN 40MG/0.4ML SYR SUBCUT SCH (09:25)
[2024-08-21] MEDS: KETOROLAC 15MG/ML VIAL IV PRN (09:32)
[2024-08-21] MEDS ORDERED: P20 PO (09:51)
[2024-08-21] MEDS: PREDNISONE 20MG TABLET PO SCH (12:34)
[2024-08-21 15:49] LABS: CLARITY URINE CLOUDY (CLEAR); COLOR URINE YELLOW (YELLOW); GLUCOSE URINE NEGATIVE (NEGATIVE); KETONES URINE TRACE (NEGATIVE); LEUKOCYTE ESTERASE URINE NEGATIVE (NEGATIVE); NITRITE URINE NEGATIVE (NEGATIVE); OCCULT BLOOD URINE NEGATIVE (NEGATIVE); PROTEIN URINE NEGATIVE (NEGATIVE); SPECIFIC GRAVITY URINE 1.017 (1.005-1.030); UROBILINOGEN URINE 0.2 E.U./dL (0.2-1.0)
[2024-08-21 16:07] LABS: *AMPHETAMINES SCREEN URINE NEGATIVE (NEGATIVE); *BENZODIAZEPINES SCREEN URINE NEGATIVE (NEGATIVE)
[2024-08-21 16:08] LABS: *BARBITURATES SCREEN URINE NEGATIVE (NEGATIVE); *COCAINE SCREEN URINE NEGATIVE (NEGATIVE); CANNABINOID URINE SCREEN NEGATIVE (NEGATIVE); ECSTASY MDMA SCREEN URINE NEGATIVE (NEGATIVE); METHADONE URINE SCREEN NEGATIVE (NEGATIVE); OPIATES URINE SCREEN NEGATIVE (NEGATIVE); PHENCYCLIDINE URINE SCREEN NEGATIVE (NEGATIVE)
[2024-08-21 17:10] LABS: BACTERIA URINE 2+; RBC URINE 0-2 /hpf (0-2); SQUAMOUS EPITHELIAL CELL URINE 2+ /lpf (RARE/1+); WBC URINE 0-2 /hpf (0-2)
[2024-08-21] MEDS: CLOPIDOGREL 75MG TABLET PO SCH (18:07)
[2024-08-21] MEDS: ATORVASTATIN CALCIUM 40MG TABLET PO SCH (20:39)
[2024-08-21] MEDS: AZITHROMYCIN 500 MG TABLET PO SCH (20:39)
[2024-08-21 22:12] LABS: HEPATITIS B SURFACE ANTIGEN NEGATIVE (Negative)
[2024-08-21 22:33] LABS: HEPATITIS C AB NON REACTIVE (Neg) (Negative)
[2024-08-22] VITALS (12 sets, daily range): BP systolic 107–155; BP diastolic 55–92; PULSE 79–98; RESP 14–24; TEMP 36.2–36.7; O2SAT 91–98
[2024-08-22] MEDS: FUROSEMIDE 40MG/4ML VIAL IVP SCH (09:51)
[2024-08-23] VITALS: BP 122/76; PULSE 88; RESP 18; TEMP 36.2; O2SAT 96
[2024-08-23 03:37] VITALS: PULSE 86; RESP 16; O2SAT 95
[2024-08-23 04:00] VITALS: BP 135/80; PULSE 75; RESP 19; TEMP 36.2; O2SAT 96
[2024-08-23 07:08] LABS: BASOPHILS % 0.2 % (0.0-2.0); HEMATOCRIT. 40.8 % (36.0-48.0); HEMOGLOBIN. 13.4 g/dL (12.0-16.0); LYMPHOCYTES % 22.5 % (20.0-50.0); MEAN CORPUSCULAR HEMOGLOBIN 28.9 pg (28.0-32.0); MEAN CORPUSCULAR HGB CONC 32.8 g/dL (31.0-37.0); MEAN CORPUSCULAR VOLUME 88.1 fL (81.0-99.0); MEAN PLATELET VOLUME 8.9 fl (7.4-10.4); MONOCYTES % 10.3 % (2.0-8.0); PLATELET 174 x1000/uL (130-400); RED BLOOD CELL COUNT 4.63 mill/uL (4.2-5.4); RED CELL DISTRIBUTION WIDTH 14.2 % (11.6-14.6); WHITE BLOOD COUNT 8.7 x1000/uL (4.5-11.0)
[2024-08-23 07:10] LABS: CARBON DIOXIDE 32 mEq/L (21-32); CHLORIDE 105 mEq/L (98-107); POTASSIUM 3.9 mEq/L (3.5-5.1); SODIUM 145 mEq/L (136-145)
[2024-08-23 07:11] LABS: CALCIUM 9.5 mg/dL (8.7-10.4)
[2024-08-23 07:16] LABS: CREATININE 0.9 mg/dL (0.6-1.0); GLUCOSE 70 mg/dL (70-105); UREA NITROGEN BLOOD 24 mg/dL (9-23)
[2024-08-23 08:00] VITALS: BP 142/85; PULSE 87; RESP 16; TEMP 36.7; O2SAT 96
[2024-08-23 08:07] VITALS: PULSE 75; RESP 19
[2024-08-23] MEDS ORDERED: FURO-151 MT (08:52)
[2024-08-23 09:29] VITALS: BP 142/85; PULSE 87; TEMP 98.1; O2SAT 96
== END 2024-08-23 11:30 | disposition home or self-care (01) | DRG 189 ==
LOC: ER 12:31 → 6WST 15:25 → EDBEDREQ 15:28 → EDBEDREQTM 15:28
PROVIDERS: ADMIT Internal Medicine; ATTEND Internal Medicine
DX: J96.21 Acute and chronic respiratory failure with hypoxia (principal); I50.33 Acute on chronic diastolic (congestive) heart failure; J44.1 Chronic obstructive pulmonary disease with (acute) exacerbation; I11.0 Hypertensive heart disease with heart failure; M32.9 Systemic lupus erythematosus, unspecified; I27.20 Pulmonary hypertension, unspecified; I25.2 Old myocardial infarction; E78.5 Hyperlipidemia, unspecified; E66.9 Obesity, unspecified; I25.10 Atherosclerotic heart disease of native coronary artery without angina pectoris; Z68.31 Body mass index [BMI] 31.0-31.9, adult; Z79.82 Long term (current) use of aspirin; Z99.81 Dependence on supplemental oxygen; Z79.899 Other long term (current) drug therapy; Z87.891 Personal history of nicotine dependence; Z88.0 Allergy status to penicillin; Z98.61 Coronary angioplasty status
CPT/HCPCS: 36415; 36600; 71045; 80048; 80053; 80305; 81003; 82375; 82805; 83735; 83880; 84100; 84484; 85025; 86705; 87340; 93005; 93970; 94070; 94640; 94664; 94760; 99291; J0456; J1650; J1885; J1940; J2470; J2919; J3475; J7512; J7626

== ENCOUNTER 2025-04-19 13:46 | Emergency (ER) | payer MEDICARE, MEDICAID ==
[~2025-04-19] VITALS: Ht 157.5 cm; Wt 118.0 kg
[~2025-04-19 13:46] MED LIST changes: -PRED10TA MT; -TC1U15 TOP
[2025-04-19 13:48] VITALS: O2SAT 95
[2025-04-19] MEDS: IBUPROFEN 600MG TABLET PO ONE (14:56)
[2025-04-19] MEDS ORDERED: IBUP-1455 MT (15:11)
[2025-04-19 15:53] VITALS: BP 138/82; PULSE 91; RESP 16; TEMP 36.7; O2SAT 95
== END 2025-04-19 15:54 | disposition home or self-care (01) ==
LOC: ER 13:46
DX: M79.671 Pain in right foot (principal); M79.604 Pain in right leg; I11.0 Hypertensive heart disease with heart failure; I50.9 Heart failure, unspecified; Z79.02 Long term (current) use of antithrombotics/antiplatelets; Z79.1 Long term (current) use of non-steroidal anti-inflammatories (NSAID); Z79.51 Long term (current) use of inhaled steroids; Z79.82 Long term (current) use of aspirin; Z79.899 Other long term (current) drug therapy; Z88.0 Allergy status to penicillin; Z88.1 Allergy status to other antibiotic agents
CPT/HCPCS: 73630; 99283